=== PATIENT | female | born 1960 | race Caucasian/White ===

== ENCOUNTER 2019-10-15 09:55 | Outpatient (CLI) | payer OTHER, SELFPAY ==
--- NOTE | ~2019-10-15 | MM_ITS ---
EXAMINATION: MM screening [facility] BI w aidan HISTORY: Screening mammogram TECHNIQUE: Craniocaudal and mediolateral oblique 3-D tomosynthesis images were obtained and synthetic 2-D images were generated. CAD analysis was submitted and interpreted. COMPARISON: Comparison to multiple prior studies sequentially, with oldest reviewed study dated 06/30. BREAST PARENCHYMAL COMPOSITION: There are scattered areas of fibroglandular density. FINDINGS: There is a developing cluster of calcifications located laterally in the left breast on CC view. The right breast is stable without evidence for malignancy. IMPRESSION: 1. Developing cluster of left breast calcifications. 2. Magnification views are recommended. BI-RADS Category 0: Incomplete: Needs additional imaging evaluation. Reviewed, dictated and finalized at location A.
== END 2019-10-15 09:56 | disposition home or self-care (01) ==
PROVIDERS: PCP Family Medicine; Visit Provider Obstetrics & Gynecology
DX: Z12.31 Encounter for screening mammogram for malignant neoplasm of breast (principal); R92.8 Other abnormal and inconclusive findings on diagnostic imaging of breast
CPT/HCPCS: 77063; 77067

== ENCOUNTER 2019-10-29 12:18 | Outpatient (CLI) | payer OTHER, SELFPAY ==
--- NOTE | ~2019-10-29 | MM_ITS ---
EXAMINATION: MM diagnostic mammo unilat LT HISTORY: Indeterminate left breast calcifications on screening mammogram TECHNIQUE: Additional images of the left breast were performed and synthetic 2-D images were generate d. CAD analysis was submitted and interpreted. COMPARISON: 10/15/2019, 09/27/2018, 09/21/2017, 07/29/2016 FINDINGS: There are grouped calcifications in the middle third of the outer breast 8.5 cm from the ni pple which appear to be round in morphology. With magnification views, these have a similar and stabl e appearance compared to prior left diagnostic mammogram. No suspicious mass or architectural distort ion are identified. IMPRESSION: 1. Stable benign left breast calcifications. No mammographic evidence of malignancy. 2. Recommend routine screening mammography in one year. BI-RADS Category 2: Benign finding(s). Reviewed, dictated and finalized at location A. IMPRESSION: 1. Stable benign left breast calcifications. No mammographic evidence of malign felix. 2. Recommend routine screening mammography in one year. BI-RADS Category 2: Benign finding(s).
== END 2019-10-29 12:19 | disposition home or self-care (01) ==
PROVIDERS: PCP Family Medicine; Visit Provider Obstetrics & Gynecology
DX: R92.1 Mammographic calcification found on diagnostic imaging of breast (principal)
CPT/HCPCS: 77065

== ENCOUNTER 2020-06-09 11:16 | Outpatient (CLI) | payer OTHER, SELFPAY ==
--- NOTE | ~2020-06-09 | XR_ITS ---
EXAMINATION: XR chest 2V DATE: 06/09/2020 11:42 INDICATION: Shortness of breath. TECHNIQUE: Frontal and lateral views of the chest were obtained. COMPARISON: Chest 2 views 05/08/2018 FINDINGS: The chest demonstrates clear lungs without pneumonia, pleural effusion, or pneumothorax. Th e heart size is normal. There are prominent paracardial fat pads. IMPRESSION: 1. No acute cardiopulmonary disease. Reviewed, dictated and finalized at location B. 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
== END 2020-06-09 11:17 | disposition home or self-care (01) ==
PROVIDERS: PCP Family Medicine; Visit Provider Family Medicine
DX: R06.02 Shortness of breath (principal)
CPT/HCPCS: 71046

== ENCOUNTER 2020-10-17 09:38 | Outpatient (CLI) | payer OTHER, SELFPAY ==
--- NOTE | ~2020-10-17 | MM_ITS ---
EXAMINATION: MM screening [facility] w aidan HISTORY: Screening mammogram TECHNIQUE: Craniocaudal and mediolateral oblique 3-D tomosynthesis images were obtained and synthetic 2-D images were generated. CAD analysis was submitted and interpreted. COMPARISON: 10/29/2019, 10/15/2019, 09/27/2018 BREAST PARENCHYMAL COMPOSITION: The breasts are heterogeneously dense, which may obscure small masses . FINDINGS: Scattered benign-appearing calcifications are present. There is no evidence of suspicious m ass, calcification, or architectural distortion to suggest malignancy in either breast. There has bee n no suspicious interval change. IMPRESSION: 1. No mammographic evidence of malignancy. 2. Recommend routine screening mammography in one year. BI-RADS Category 2: Benign finding(s). Reviewed, dictated and finalized at location A.
== END 2020-10-17 09:39 | disposition home or self-care (01) ==
PROVIDERS: PCP Family Medicine; Visit Provider Obstetrics & Gynecology
DX: Z12.31 Encounter for screening mammogram for malignant neoplasm of breast (principal)
CPT/HCPCS: 77063; 77067

== ENCOUNTER → 2020-11-02 12:03 | Outpatient (CLI) | payer OTHER, SELFPAY ==
--- NOTE | ~2020-11-02 | US_ITS ---
EXAMINATION: US thyroid DATE: 11/02/2020 12:25 INDICATION: Thyrotoxicosis TECHNIQUE: Multiple ultrasound images of the thyroid were obtained. COMPARISON: 05/20/2012 FINDINGS: The right thyroid lobe measures 5.7 x 2.6 x 2.9 cm. The left thyroid lobe measures 5.5 x 3.1 x 2.4 c m. The thyroid isthmus measures 5 mm in maximal thickness. 6 mm wider than tall hypoechoic partially cystic nodule at the superior right thyroid (TI-RADS 3, mildly suspicious , FNA if >=2.5 cm, annual f ollowup is >=1.5 cm). There is also a 7 mm wider than tall solid hypoechoic nodule in the superior ri ght thyroid (TI-RADS 4, moderately suspicious , FNA if >=1.5 cm, annual followup is >=1 cm). 1.4 cm s olid wider than tall isoechoic nodule with ill-defined margins in the left thyroid lobe, also TI RADS 3. There is normal echotexture, echogenicity and vascular flow throughout the thyroid gland. IMPRESSION: 1. A few small bilateral thyroid nodules none meeting consensus criteria for either biopsy or follow- up. Recommend clinical followup with repeat imaging if there are changes on physical exam. Reviewed, dictated and finalized at location B. IMPRESSION: 1. A few small bilateral thyroid nodules none meeting consensus criteria for ei ther biopsy or follow-up. Recommend clinical followup with repeat imaging if th ere are changes on physical exam.
== END ==
PROVIDERS: PCP Family Medicine; Visit Provider Physician Assistant
DX: E05.90 Thyrotoxicosis, unspecified without thyrotoxic crisis or storm (principal)
CPT/HCPCS: 76536

== ENCOUNTER → 2021-06-18 10:25 | Outpatient (CLI) | payer OTHER, SELFPAY ==
--- NOTE | ~2021-06-18 | CT_ITS ---
EXAMINATION:CT lung screening DATE: 06/18/2021 10:37 INDICATION: Personal history of tobacco dependence. TECHNIQUE: Computed tomography (CT) of the chest was performed without intravenous contrast. Automate d exposure control and iterative reconstruction technique were employed. The dose-length product (DLP ) was 262.36 mGy-cm. COMPARISON: Chest CT 05/17/2018 FINDINGS: There is mild atelectasis bilaterally. There is a 2 mm nodule in left upper lobe. No pleura l effusion. The thyroid is enlarged and extends into the superior mediastinum. The heart size is norm al. No pericardial effusion. There are chronic masses in the adrenal glands measuring up to 2.1 cm on the left, consistent with adenomas. There is moderate thoracic spondylosis. IMPRESSION: 1. Lung-RADS category 2: Benign appearance or behavior. Continue annual screening with noncontrast lo w-dose chest CT in 12 months. Reviewed, dictated and finalized at location A. 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 Lung-RADS category 2: Benign appearance or behavior. Continue annual screeni ng with noncontrast low-dose chest CT in 12 months.
== END ==
PROVIDERS: PCP Family Medicine; Visit Provider Physician Assistant
DX: Z12.2 Encounter for screening for malignant neoplasm of respiratory organs (principal); Z87.891 Personal history of nicotine dependence
CPT/HCPCS: 71271

== ENCOUNTER 2021-11-10 16:01 | Outpatient (CLI) | payer OTHER, SELFPAY ==
--- NOTE | ~2021-11-10 | MM_ITS ---
EXAMINATION: MM screening [facility] w aidan HISTORY: Screening TECHNIQUE: Craniocaudal and mediolateral oblique 3-D tomosynthesis images were obtained and synthetic 2-D images were generated. CAD analysis was submitted and interpreted. COMPARISON: Comparison to multiple prior studies sequentially, with oldest reviewed study dated 07/02. BREAST PARENCHYMAL COMPOSITION: The breasts are heterogenously dense, which may obscure small masses FINDINGS: Stable appearance to pleomorphic clustered calcifications, in the upper outer quadrant of t he left breast. There is no evidence of suspicious mass, calcification, or architectural distortion t o suggest malignancy in either breast. There has been no suspicious interval change. IMPRESSION: 1. No mammographic evidence of malignancy. 2. Recommend routine screening mammography in one year. BI-RADS Category 2: Benign finding(s). Reviewed, dictated and finalized at location A.
== END 2021-11-10 16:02 | disposition home or self-care (01) ==
LOC: ANHIMG 16:02
PROVIDERS: PCP Family Medicine; Visit Provider Obstetrics & Gynecology
DX: Z12.31 Encounter for screening mammogram for malignant neoplasm of breast (principal)
CPT/HCPCS: 77063; 77067

== ENCOUNTER → 2021-12-28 12:47 | Outpatient (CLI) | payer MEDICARE, SELFPAY ==
--- NOTE | ~2021-12-28 | US_ITS ---
EXAMINATION: US thyroid DATE: 12/28/2021 13:06 INDICATION: Nontoxic single thyroid nodule. TECHNIQUE: Multiple ultrasound images of the thyroid were obtained. COMPARISON: Ultrasound 11/02/2020 FINDINGS: The right thyroid lobe measures 5.9 x 2.3 x 2.8 cm. The left thyroid lobe measures 5.9 x 2.3 x 2.9 c m. The thyroid demonstrates heterogeneous echogenicity. Vascularity is normal. In the right thyroid lobe, there is a 7 mm solid, hypoechoic, narys-nwch-wlev nodule with smooth margin without echogenic foci (TI-RADS TR4). In the left thyroid lobe, there is a 1.3 cm solid, isoechoic, olaki-iyws-gnwi nod ule with ill-defined margin without echogenic foci (TR3). In the left thyroid lobe, there is a 1.2 cm solid, isoechoic, wider than tall nodule with ill-defined margin without echogenic foci (TR3). IMPRESSION: 1. Small thyroid nodules, likely not clinically significant. No follow-up is needed. 2. Heterogeneous thyroid, likely chronic lymphocytic (Aleyda) thyroiditis. Reviewed, dictated and finalized at location A. IMPRESSION: 1. Small thyroid nodules, likely not clinically significant. No follow-up is ne eded. 2. Heterogeneous thyroid, likely chronic lymphocytic (Aleyda) thyroiditis.
== END ==
PROVIDERS: PCP Family Medicine; Visit Provider Internal Medicine Endocrinology, Diabetes & Metabolism
DX: E04.2 Nontoxic multinodular goiter (principal)
CPT/HCPCS: 76536

== ENCOUNTER 2022-05-19 15:07 | Outpatient (CLI) | payer MEDICARE, SELFPAY ==
--- NOTE | ~2022-05-19 | DEXA_ITS ---
Bone Density Report Name: RACHELLE ISLAS Age: 62 Sex: Female Ethnicity: White Date of : 1960 Indication: postmenopausal; screening for osteoporosis; hysterectomy; Referring Provider: PA AGRAWAL Study: Bone densitometry was performed. Exam Date: May 19, 2022 Accession number: [id number] Bone Density: Region BMD T-score Z-score Classification AP Spine(L1-L4) 0.970 -0.7 0.7 Normal Femoral Neck (Left) 0.734 -1.0 0.3 Normal Total Hip (Left) 0.994 0.4 1.4 Normal Femoral Neck (Right) 0.705 -1.3 0.0 Osteopenia Total Hip (Right) 0.967 0.2 1.2 Normal Total Hip Mean 0.981 0.3 1.3 Normal World Health Organization criteria for BMD impression classify patients as: Normal (T-score at or above -1.0), Osteopenia (T-score between -1.0 and -2.5), or Osteoporosis (T-score at or below -2.5). 10-year Fracture Risk(1): Major Osteoporotic Fracture 6.9% Hip Fracture 0.5% Reported Risk Factors: [place] (), Neck BMD=0.705, BMI=38.2 (1) FRAX(R) Version 3.08. Fracture probability calculated for an untreated patient. Fracture probability may be lower if the patient has received treatment. Clinical Information Provided by Patient: Has used the following medications: Vitamin D Has the following medical conditions: Hysterectomy Patient maximum height was 64 Drinks caffeinated beverages Onset of menses at age 14 Number of children 1 Impression: The patient has low bone mass, based on the Right Femoral Neck T-score. The patient has an estimated ten-year risk of hip fracture of 0.5% and an estimated ten-year risk of major fracture of 6.9%, based on the WHO FRAX algorithm. Discussion: BONE DENSITY IS LOW AT ONE OR MORE SKELETAL SITES. This patient's lowest T-score is low at one or more skeletal sites. It meets the World Health Organization's (WHO) criteria for ?low bone mass? (T-score between -1.0 and -2.5). The patient's 10-year risk of fracture as calculated by FRAX is less than the threshold where pharmacological therapy is recommended by the National Osteoporosis Foundation (NOF). However, all treatment decisions require clinical judgment and consideration of individual patient factors, including patient preferences, comorbidities, previous drug use, risk factors not captured in the FRAX model (e.g., frailty, falls, vitamin D deficiency, increased bone turnover, interval significant decline in bone density) and possible under or overestimation of fracture risk by FRAX. The patient should follow a healthful lifestyle (good nutrition with adequate calcium and vitamin D, and appropriate weight-bearing exercise). Follow-Up: Consider repeating this study in 2 to 3 years to reassess this patient's status, or sooner if there is some new clinical indication. Reported by: TY
== END 2022-05-19 15:08 | disposition home or self-care (01) ==
PROVIDERS: PCP Family Medicine; Visit Provider Internal Medicine Endocrinology, Diabetes & Metabolism
DX: Z78.0 Asymptomatic menopausal state (principal); E05.90 Thyrotoxicosis, unspecified without thyrotoxic crisis or storm; M85.80 Other specified disorders of bone density and structure, unspecified site; M85.851 Other specified disorders of bone density and structure, right thigh
CPT/HCPCS: 77080

== ENCOUNTER 2022-06-30 11:05 | Outpatient (CLI) | payer MEDICARE, SELFPAY ==
--- NOTE | ~2022-06-30 | CT_ITS ---
EXAMINATION: CT lung screening DATE: 06/30/2022 11:31 INDICATION: Former tobacco use TECHNIQUE: Computed tomography (CT) of the chest was performed without intravenous contrast. The dose -length product was 188.43 mGy-cm. Automated exposure control and iterative reconstruction technique were employed. COMPARISON: CT dated 06/18/2021 FINDINGS: No significant pleural or pericardial effusion. Heart size is normal. No thoracic lymphaden opathy. No significant vascular abnormality. There are bilateral adrenal masses, largest in the left adrenal gland measuring 2.7 x 1.3 cm, most likely benign adenomas. There is a 2 mm right upper lobe n odule. There is a 2 mm left upper lobe nodule. These nodules are unchanged. No new pulmonary nodules or masses. Mild thoracic spondylosis. No focal lytic or blastic lesions. IMPRESSION: 1. Lung-RADS category 2: Benign appearance or behavior. Continue annual screening with noncontrast lo w-dose chest CT in 12 months. Reviewed, dictated and finalized at location A. 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 Lung-RADS category 2: Benign appearance or behavior. Continue annual screeni ng with noncontrast low-dose chest CT in 12 months.
== END 2022-06-30 11:06 | disposition home or self-care (01) ==
PROVIDERS: PCP Family Medicine; Visit Provider Family Medicine
DX: Z12.2 Encounter for screening for malignant neoplasm of respiratory organs (principal); Z87.891 Personal history of nicotine dependence
CPT/HCPCS: 71271

== ENCOUNTER 2023-01-24 10:04 | Outpatient (CLI) | payer MEDICARE, SELFPAY ==
--- NOTE | ~2023-01-24 | MM_ITS ---
EXAMINATION: MM screening [facility] BI w aidan HISTORY: Screening mammogram TECHNIQUE: Craniocaudal and mediolateral oblique 3-D tomosynthesis images were obtained and synthetic 2-D images were generated. Bilateral rotated lateral CC views. CAD analysis was submitted and interp reted. COMPARISON: November 10, 2021, October 17, 2020, October 29, 2019 bilateral screening mammogram examinations BREAST PARENCHYMAL COMPOSITION: The breasts are heterogeneously dense, which may obscure small masses . FINDINGS: Biopsy marker of right breast history of prior benign right percutaneous needle biopsy. Sca ttered bilateral benign calcifications are again noted. There is no evidence of suspicious mass, calc ification, or architectural distortion to suggest malignancy in either breast. There has been no susp icious interval change. IMPRESSION: 1. No mammographic evidence of malignancy. 2. Recommend routine screening mammography in one year. BI-RADS Category 2: Benign finding(s). Reviewed, dictated and finalized at location A.
== END 2023-01-24 10:05 | disposition home or self-care (01) ==
LOC: ANHIMG 10:07
PROVIDERS: PCP Family Medicine; Visit Provider Obstetrics & Gynecology
DX: Z12.31 Encounter for screening mammogram for malignant neoplasm of breast (principal)
CPT/HCPCS: 77063; 77067

== ENCOUNTER 2023-07-11 10:59 | Outpatient (CLI) | payer MEDICARE, SELFPAY ==
--- NOTE | ~2023-07-11 | CT_ITS ---
CT Scan of the Chest without Contrast: Clinical Indication: Lung cancer screening, personal history of nicotine dependence Technique: Contiguous sections were acquired throughout the chest without intravenous contrast. Dose reduction technique was used on this scan by utilizing automated exposure control and iterative recon struction technique. The dose-length product (DLP) was 227.00 mGy-cm. COMPARISON: 06/30/2022 Findings: There is no evidence of any significant mediastinal, hilar or axillary lymphadenopathy. The mediastin al soft tissues appear normal. There is no evidence of pleural or pericardial effusion. The lungs are clear. No pulmonary nodules or infiltrates are noted. Images through the upper abdomen reveal stable low-density left adrenal nodules. Impression: Lung RADS 1: Negative. 12 month follow-up screening CT advised. Reviewed, dictated and finalized at [facility]. 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 12 month follow-up screening CT advised.
== END 2023-07-11 11:00 | disposition home or self-care (01) ==
PROVIDERS: PCP Family Medicine; Visit Provider Physician Assistant
DX: Z12.2 Encounter for screening for malignant neoplasm of respiratory organs (principal); Z87.891 Personal history of nicotine dependence
CPT/HCPCS: 71271

== ENCOUNTER 2024-03-06 13:18 | Outpatient (CLI) | payer MEDICARE, SELFPAY ==
--- NOTE | ~2024-03-06 | MM_ITS ---
EXAMINATION: MM screening [facility] BI w aidan HISTORY: Screening TECHNIQUE: Craniocaudal and mediolateral oblique 3-D tomosynthesis images were obtained and synthetic 2-D images were generated. CAD analysis was submitted and interpreted. COMPARISON: Comparison to multiple prior studies sequentially, with oldest reviewed study dated 09/27. BREAST PARENCHYMAL COMPOSITION: Not dense: There are scattered areas of fibroglandular density. FINDINGS: There is no evidence of suspicious mass, calcification, or architectural distortion to sugg est malignancy in either breast. There has been no suspicious interval change. IMPRESSION: 1. No mammographic evidence of malignancy. 2. Recommend routine screening mammography in one year. BI-RADS Category 2: Benign finding(s). Reviewed, dictated and finalized at location B.
== END 2024-03-06 13:19 | disposition home or self-care (01) ==
PROVIDERS: PCP Family Medicine; Visit Provider Obstetrics & Gynecology
DX: Z12.31 Encounter for screening mammogram for malignant neoplasm of breast (principal)
CPT/HCPCS: 77063; 77067

== ENCOUNTER 2024-05-22 04:13 | Day surgery (SDC) | payer MEDICARE, SELFPAY ==
--- NOTE | 2024-05-01 09:59 | PC.NURSE ---
Suprep Bowel Prep sent to pt pharmacy per pt's request. Instructions e-mailed to pt.
[2024-05-08 13:40] VITALS: BMI 37.8
[2024-05-22 06:50] VITALS: BP 147/90; PULSE 104; RESP 20; TEMP 36; O2SAT 100; BMI 39.2
[2024-05-22] MEDS: LACTATED RINGERS 1,000 ML 150 ML IV CONT (07:03)
--- NOTE | 2024-05-22 07:31 | WPDANESEPPF ---
Anes - Initial Pre Proc Eval Procedure: Operation Date: 05/22/24 08:00 Proposed Procedures p Colonoscopy - Tello Marshall MD Date/Time: 05/22/24 07:31 Surgeon: Tello Marshall MD Pre Op Diagnosis: personal hx colon polyps, family hx of cancer Patient Data Age: 64 Gender: F Height: 1.63 m Weight: 103.8 kg Last Vital Signs Temp 96.8 F L 05/22/24 06:50 Pulse 104 H 05/22/24 06:50 Resp 20 05/22/24 06:50 BP 147/90 H 05/22/24 06:50 Pulse Ox 100 05/22/24 06:50 O2 Del Method Room Air 05/22/24 06:50 Allergies Allergy/AdvReac Type Severity Reaction Status Date / Time hydrocodone Allergy Intermediate RASH Verified 05/22/24 06:49 bupropion [From Wellbutrin] Allergy Mild Rash Verified 05/22/24 06:49 Home Medications Medication Instructions Recorded Confirmed Type multivitamin with minerals 1 cap PO DAILY 07/23/19 05/22/24 History (My-Vitalife capsule) apremilast 30 mg tablet (Otezla) 30 mg PO BID 02/03/21 05/22/24 History cholecalciferol (vitamin D3) 50 2,000 unit PO DAILY #90 caps 06/14/21 05/22/24 Rx mcg (2,000 unit) capsule gabapentin 300 mg capsule 300 mg PO QID 06/14/21 05/22/24 History simvastatin 80 mg tablet 80 mg PO DAILY #90 tabs 11/21/23 05/22/24 Rx hydrochlorothiazide 12.5 mg tablet See Rx Instructions .Route 12/20/23 05/22/24 Rx .COMPLEX #90 tabs lisinopril 30 mg tablet See Rx Instructions .Route 12/20/23 05/22/24 Rx .COMPLEX #90 tabs metoprolol succinate 25 mg See Rx Instructions .Route 12/20/23 05/22/24 Rx tablet,extended release 24 hr .COMPLEX #90 tabs omeprazole 20 mg capsule,delayed See Rx Instructions .Route 12/20/23 05/22/24 Rx release .COMPLEX #90 caps cranberry fruit concentrate 250 mg 250 mg PO TID 05/08/24 05/22/24 History chewable tablet (Azo Cranberry) Patient hx anesthesia problems: none Family hx anesthesia problems: none Results Review: All pre-operative results and documents have been reviewed as part of the pre-operative evaluation. [facility] Past Medical History Medical History Accelerated hypertension Acute arthritis Anxiety Back pain Benign essential HTN Chronic pain Chronic UTI Class 2 obesity with body mass index (BMI) of 38.0 to 38.9 in adult Cyst Degeneration of spine GERD (gastroesophageal reflux disease) History of tobacco use Hyperthyroidism Lumbar radiculopathy, chronic Mixed hyperlipidemia Neuropathy Osteopenia Psoriasis Screening mammogram, encounter for Surgical History Surgical History Delivery by section (07/01/87) H/O colposcopy with cervical biopsy (09/15/05) colposcopy ; Atypia H/O excision of lamina of lumbar vertebra for decompression of spinal cord H/O LEEP (07/15/21) History of gynecological procedure (12/27/06) supracx hyst with RSO ; pain right ovarian mass / adenomyosis, leiomyomata History of gynecological procedure (09/08/04) T/L ; D&C ; Novasure Ablation ; dysmenorrhea History of kidney surgery (07/02/09) kidney stones removed History of orthopedic surgery (12/05/17) right hand trigger thumb surgery S/P breast biopsy, right (08/10/10) right breast calcification Family History Family History Father Carcinoma of colon Family history of lung cancer Patient's father is Mother Family history of rheumatoid arthritis Other Alcoholism Family history of arthritis Heart disease Hypertension Social History Social History Social History: Smoking packs per day: 1 Smoking cigarettes per day: 20.0 Years smoked: 34 Smoking pack-years: 34.00 Smoking status: Former smoker Tobacco type: cigarettes Second hand tobacco smoke exposure: Yes Smoking end date: 09/02/19 Alcohol intake: never Sub
--- NOTE | 2024-05-22 07:57 | PM.IMHP ---
H&P: HPI History of Present Illness Date/Time: 05/22/24 07:57 Chief Complaint: This patient has family history of colorectal cancer. His father had CRC at 54 years old. the patient had polyps 10 years ago. Narrative: as above Review of Systems Review of Systems: All systems reviewed & are unremarkable except as noted in HPI and below PMFSH Past Medical History Medical History Accelerated hypertension Acute arthritis Anxiety Back pain Benign essential HTN Chronic pain Chronic UTI Class 2 obesity with body mass index (BMI) of 38.0 to 38.9 in adult Cyst Degeneration of spine GERD (gastroesophageal reflux disease) History of tobacco use Hyperthyroidism Lumbar radiculopathy, chronic Mixed hyperlipidemia Neuropathy Osteopenia Psoriasis Screening mammogram, encounter for Surgical History Surgical History Delivery by section (07/01/87) H/O colposcopy with cervical biopsy (09/15/05) colposcopy ; Atypia H/O excision of lamina of lumbar vertebra for decompression of spinal cord H/O LEEP (07/15/21) History of gynecological procedure (12/27/06) supracx hyst with RSO ; pain right ovarian mass / adenomyosis, leiomyomata History of gynecological procedure (09/08/04) T/L ; D&C ; Novasure Ablation ; dysmenorrhea History of kidney surgery (07/02/09) kidney stones removed History of orthopedic surgery (12/05/17) right hand trigger thumb surgery S/P breast biopsy, right (08/10/10) right breast calcification Family History Family History Father Carcinoma of colon Family history of lung cancer Patient's father is Mother Family history of rheumatoid arthritis Other Alcoholism Family history of arthritis Heart disease Hypertension Social History Social History Social History: Smoking packs per day: 1 Smoking cigarettes per day: 20.0 Years smoked: 34 Smoking pack-years: 34.00 Smoking status: Former smoker Tobacco type: cigarettes Second hand tobacco smoke exposure: Yes Smoking end date: 09/02/19 Alcohol intake: never Substance use: never Substance use type: does not use Do You Feel Safe in your Home?: Yes Lack of Transportation: No Lack of Food: Never True Current Housing: I Have Housing Concerned About Future Housing: No Difficulty Paying Gas/Electric Bills: No Difficulty Paying for Meds: No Currently Unemployed: No Difficulty w/ Childcare or Family Care: No Living arrangements: with family Additional living arrangements comments: Occupation/Education: retired Gender identity (if verbalized by the patient): Female Sexual Orientation (if Verbalized by the Patient): Straight or Heterosexual Spiritual care concerns: No Meds Home Medications and Allergies Home Medications Medication Instructions Recorded Confirmed Type multivitamin with minerals 1 cap PO DAILY 07/23/19 05/22/24 History (My-Vitalife capsule) apremilast 30 mg tablet (Otezla) 30 mg PO BID 02/03/21 05/22/24 History cholecalciferol (vitamin D3) 50 2,000 unit PO DAILY #90 caps 06/14/21 05/22/24 Rx mcg (2,000 unit) capsule gabapentin 300 mg capsule 300 mg PO QID 06/14/21 05/22/24 History simvastatin 80 mg tablet 80 mg PO DAILY #90 tabs 11/21/23 05/22/24 Rx hydrochlorothiazide 12.5 mg tablet See Rx Instructions .Route 12/20/23 05/22/24 Rx .COMPLEX #90 tabs lisinopril 30 mg tablet See Rx Instructions .Route 12/20/23 05/22/24 Rx .COMPLEX #90 tabs metoprolol succinate 25 mg See Rx Instructions .Route 12/20/23 05/22/24 Rx tablet,extended release 24 hr .COMPLEX #90 tabs omeprazole 20 mg capsule,delayed See Rx Instructions .Route 12/20/23 05/22/24 Rx release .COMPLEX #90 caps cran[place] [facility]
[2024-05-22 08:32] VITALS: BP 124/61; PULSE 90; RESP 26; O2SAT 100
[2024-05-22 08:42] VITALS: BP 108/62; PULSE 85; RESP 21; O2SAT 96
[2024-05-22 08:52] VITALS: BP 127/74; PULSE 79; RESP 17; O2SAT 98
== END 2024-05-22 09:05 | disposition home or self-care (01) ==
PROVIDERS: PCP Family Medicine; Referring Provider Internal Medicine Gastroenterology; Visit Provider Internal Medicine Gastroenterology
PROC: 0DJD8ZZ Inspection of Lower Intestinal Tract, Via Natural or Artificial Opening Endoscopic (ICD-10-PCS; CPT 45378; principal; 2024-05-22 08:00)
DX: Z12.11 Encounter for screening for malignant neoplasm of colon (principal); D12.3 Benign neoplasm of transverse colon; D12.4 Benign neoplasm of descending colon; I10 Essential (primary) hypertension; F41.9 Anxiety disorder, unspecified; K21.9 Gastro-esophageal reflux disease without esophagitis; E78.2 Mixed hyperlipidemia; G89.29 Other chronic pain; M54.16 Radiculopathy, lumbar region; N39.0 Urinary tract infection, site not specified; E05.90 Thyrotoxicosis, unspecified without thyrotoxic crisis or storm; M85.88 Other specified disorders of bone density and structure, other site; G31.89 Other specified degenerative diseases of nervous system; E66.9 Obesity, unspecified; Z68.39 Body mass index [BMI] 39.0-39.9, adult; Z98.890 Other specified postprocedural states; Z87.891 Personal history of nicotine dependence; Z87.442 Personal history of urinary calculi; Z80.0 Family history of malignant neoplasm of digestive organs; Z80.1 Family history of malignant neoplasm of trachea, bronchus and lung; Z82.49 Family history of ischemic heart disease and other diseases of the circulatory system
CPT/HCPCS: 45385; 88305; J2003; J2704; J7120

== ENCOUNTER 2024-06-04 08:32 | Outpatient (CLI) | payer MEDICARE, SELFPAY ==
--- NOTE | ~2024-06-04 | XR_ITS ---
Clinical Indication: Acute pharyngitis PA and lateral views of the chest: Comparison: 06/09/2020 Findings: The lungs are clear, without evidence of focal consolidation or pleural effusion. Cardiome diastinal silhouette is within normal limits. Bones and soft tissues are unremarkable. Impression: Normal chest. Reviewed, dictated and finalized at [facility]. 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
[2024-06-04 09:48] LABS: Basophils Percent Auto 0.4 % (0.2-1.2); Eosinophils Absolute Auto 0.1 K/mm3 (0-0.3); Eosinophils Percent Auto 1.2 % (0-4.4); Hematocrit 41.3 % (37.0-47.0); Hemoglobin 13.3 g/dL (12.0-15.0); Immature Granulocyte Absolute 0.02 K/mm3 (0.00-0.031); Immature Granulocyte Percent A 0.2 % (0-0.5); Lymphocytes Absolute Auto 1.78 K/mm3 (0.9-3.2); Lymphocytes Percent Auto 17.9 % (18.3-44.2); Mean Corpuscular HGB Conc 32.2 g/dl (32-36); Mean Corpuscular Hemoglobin 29.9 pg (26-34); Mean Corpuscular Volume 92.8 fl (80-100); Mean Platelet Volume 9.4 fl (7.4-10.4); Monocytes Absolute Auto 0.7 K/mm3 (0.1-0.6); Monocytes Percent Auto 6.6 % (2.6-8.5); Neutrophils Absolute Auto 7.3 K/mm3 (1.3-6.7); Neutrophils Percent Auto 73.7 % (45.5-73.1); Platelet Count Result 301 k/mm3 (150-375); Red Blood Count 4.45 M/mm3 (4.2-5.4); Red Cell Distribution Width 13.5 % (11.5-14.5)
[2024-06-04 09:56] LABS: Hemoglobin A1C 5.8 % (<5.7)
[2024-06-04 10:20] LABS: LDL Cholesterol Direct 72 mg/dL
[2024-06-04 10:24] LABS: Influenza A QL RT-PCR Negative (Negative); Influenza B QL RT-PCR Negative (Negative); RSV RNA, RT-PCR Negative (Negative); SARS-CoV-2 RNA PCR Negative (Negative)
[2024-06-04 10:27] LABS: Alanine Aminotransferase 21 U/L (6-35); Albumin Level 4.6 g/dL (3.5-5.1); Alkaline Phosphatase 110 U/L (38-126); Anion Gap 10 mmol/L (4-12); Aspartate Amino Transferase 26 U/L (14-36); Bilirubin,Total 0.5 mg/dL (0.2-1.3); Blood Urea Nitrogen 15 mg/dL (7-17); Carbon Dioxide 27 mmol/L (22-30); Chloride 102 mmol/L (98-107); Cholesterol 163 mg/dL (0-200); Estimated Glomerular Filt Rate > 60; Glucose 109 mg/dL (65-110); HDL Direct 57 mg/dL; Potassium 3.7 mmol/L (3.4-5.0); Sodium 139 mmol/L (137-145); Triglycerides 158 mg/dL (<150)
== END 2024-06-04 08:33 | disposition home or self-care (01) ==
LOC: ANHIMG 08:38
PROVIDERS: PCP Family Medicine; Visit Provider Physician Assistant
DX: J02.9 Acute pharyngitis, unspecified (principal); R06.00 Dyspnea, unspecified; R00.0 Tachycardia, unspecified; I10 Essential (primary) hypertension; Z13.1 Encounter for screening for diabetes mellitus
CPT/HCPCS: 36415; 71046; 80053; 80061; 83036; 85025; 87637

== ENCOUNTER 2024-07-12 09:40 | Outpatient (CLI) | payer MEDICARE, SELFPAY ==
--- NOTE | ~2024-07-12 | CT_ITS ---
CT Scan of the Chest without Contrast: Clinical Indication: Lung cancer screening, nicotine dependence Technique: Contiguous sections were acquired throughout the chest without intravenous contrast. Dose reduction technique was used on this scan by utilizing automated exposure control and iterative recon struction technique. The dose-length product (DLP) was 268.35 mGy-cm. COMPARISON: 07/11/2023 Findings: There is no evidence of any significant mediastinal, hilar or axillary lymphadenopathy. The mediastin al soft tissues appear normal. There is minimal pericardial fluid. There is no pleural effusion. The lungs are clear. No pulmonary nodules or infiltrates are noted. Images through the upper abdomen reveal cholelithiasis, and stable bilateral adrenal nodules, likely adenomas.. Impression: Lung RADS 1: Negative. 12 month follow-up screening CT advised. Reviewed, dictated and finalized at [facility]. 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 12 month follow-up screening CT advised.
== END 2024-07-12 09:41 | disposition home or self-care (01) ==
PROVIDERS: PCP Family Medicine; Visit Provider Physician Assistant
DX: Z12.2 Encounter for screening for malignant neoplasm of respiratory organs (principal); Z87.891 Personal history of nicotine dependence
CPT/HCPCS: 71271

== ENCOUNTER 2024-09-06 09:25 | Outpatient (CLI) | payer MEDICARE, SELFPAY ==
--- NOTE | ~2024-09-06 | US_ITS ---
EXAM: ABDOMEN ULTRASOUND HISTORY: K80.20 - Calculus of gallbladder without cholecystitis wi... COMPARISON: Reference is made to a CT examination of the lungs (including the upper abdomen) dictated 07/12/2024 FINDINGS: LIVER: The liver is unremarkable in echogenicity and size measuring 20cm in longitudinal dimension. GALLBLADDER: Multiple stones are identified within the gallbladder. No gallbladder wall thickening or pericholecystic fluid. The portal vein is patent demonstrating hepatopedal flow. BILE DUCTS: Common bile duct measures 4mm. PANCREAS: Limited evaluation of the pancreas secondary to overlying bowel gas SPLEEN: The spleen is unremarkable in echogenicity and size measuring 9.9cm in longitudinal dimension . RIGHT KIDNEY: 12.6 cm. In length. No hydronephrosis or bulky renal calculi. Anechoic avascular structure within the interpolar region of the right kidney measuring 12 x 9 x 11 m m, likely a simple cyst for which no further follow-up is needed. LEFT KIDNEY: 12.2cm in length. No hydronephrosis or renal calculi. VASCULATURE : The abdominal aorta is nonaneurysmal. The IVC is patent. IMPRESSION: Cholelithiasis without gallbladder wall thickening or pericholecystic fluid. Hepatomegaly. Right renal simple cyst for which no further follow-up is needed. Evaluation of the pancreas is limited by overlying bowel gas. Reviewed, dictated and finalized at location A. ARCH CONTRACTS SUPERVISOR
--- OUTSIDE RECORDS SUMMARY | 2024-09-06 10:02 | XMS_ITS | Patient Health Summary ---
Author Organization [facility] Address [address] [place] [address] Care Team Providers Care Seaman Name Role Phone Petra Doll MD Primary Care Provider + Note from [facility],non-owned Affiliates and Associated Physician Practices is amultiple site organization consisting of ambulatory clinics and hospital sitesin [place], [place], [place] and [place]. This disclosure is being madepursuant to the Care Everywhere program and may not contain all information available regarding this patient. Last updated 18.[facility] Allergies * Hydrocodone-Acetaminophen(Rash) -Low Criticality Medications * Be aware that medications may not be up to date on this document. Alwaysverify current medications with the patient. * vitamin D, cholecalciferol, 2000 UNITS tablet Take 2,000 Units by mouth * hydrochlorothiazide (HYDRODIURIL) 25 MG tablet Take 12.5 mg by mouth * lisinopril (PRINIVIL; ZESTRIL) 10 MG tablet Take 10 mg by mouth * Pediatric Multiple Vit-Vit C (POLY--MY) solution Take 1 Tab by mouth * omeprazole EC (PRILOSEC OTC) 20 MG tablet Take 20 mg by mouth * simvastatin (ZOCOR) 20 MG tablet Take 20 mg by mouth * vitamin E (TOCOPHERYL) 1000 UNIT capsule Take 1,000 Units by mouth * diclofenac sodium EC (VOLTAREN) 75 MG tablet(Started 11/18/2015) Take 1 Tab by mouth 2 times daily 5 refills left Social History Tobacco Use Types Packs/Day Years Used Date Smoking Tobacco: Every Day Cigarettes Smokeless Tobacco: Never Tobacco Cessation:Ready to Q uit: No; Counseling Given: Yes Alcohol Use Standard Drinks/Week Comments No 0 (1 standard drink = 0.6 oz pur e alcohol) Sex and Gender Information Value Date Recorded Sex Assigned at Not on file Gender Identity Not on file Sexual Orientation Not on file Last Filed Vital Signs Vital Sign Reading Time Taken Comments Blood Pressure 125/91 11/18/2015 1:44 PM CDT Pulse 100 11/18/2015 1:44 PM CDT Temperature 36.9 C (98.4 F) 01/30/2013 8:07 AM CDT Respiratory Rate 16 01/30/2013 8:07 AM CDT Oxygen Saturation - - Inhaled Oxygen Concentration - - Weight 90.7 kg (200 lb) 11/18/2015 1:44 PM CDT Height 162.6 cm (5' 4 ) 11/18/2015 1:44 PM CDT Body Mass Index 34.33 11/18/2015 1:44 PM CDT Procedures * LAB HISTORICAL RESULTS-ONBASE(Performed 06/23/2012) Results * LAB HISTORICAL RESULTS-ONBASE (06/23/2012) 06/23/2012 Narrative [facility] - 01/25/2013 10:19 AM CDT Historical Provider LAB - CHEMISTRY O RDERABLES [facility] [address] [place] [address], [facility] Care Teams Seaman Relationship Specialty Start Date End Date Petra Doll MD [address] [place] [id number] PCP - General Family Medicine 11/18/15
--- OUTSIDE RECORDS SUMMARY | 2024-09-06 10:02 | XMS_ITS | Clinical Summary ---
Author Organization [facility] Address [address] [place] [address] Care Team Providers Care Confidential Secretary Name Role Phone Petra Doll MD Primary Care Provider + Source Comments [facility],non-owned Affiliates and Associated Physician Practices is amultiple site organization consisting of ambulatory clinics and hospital sitesin [place], [place], [place] and [place]. This disclosure is being madepursuant to the Care Everywhere program and may not contain all information available regarding this patient. Last updated 18.[facility] Allergies Active Allergy Reactions Criticality Noted Date Comments Hydrocodone-Acetaminophen Rash Low 11/18/2015 Medications * Be aware that medications may not be up to date on this document. Alwaysverify current medications with the patient. Medication Sig Dispensed Refills Start Date End Date Status vitamin D, cholecalciferol, 2000 UNITS tablet Take 2,000 Units by mouth Active hydrochlorothiazide (HYDRODIURIL) 25 MG tablet Take 12.5 mg by mouth Active lisinopril (PRINIVIL; ZESTRIL) 10 MG tablet Take 10 mg by mouth Active Pediatric Multiple Vit-Vit C (POLY--MY) solution Take 1 Tab by mouth Active omeprazole EC (PRILOSEC OTC) 20 MG tablet Take 20 mg by mouth Active simvastatin (ZOCOR) 20 MG tablet Take 20 mg by mouth Active vitamin E (TOCOPHERYL) 1000 UNIT capsule Take 1,000 Units by mouth Active diclofenac sodium EC (VOLTAREN) 75 MG tablet Take 1 Tab by mouth 2 times daily 60 Tab 5 11/18/2015 Active Family History Medical History Relation Name Comments Cancer Father Hypercholesterolemia Father Hypertension Father Arthritis - Rheumatoid Mother Hypercholesterolemia Mother Hypertension Mother Relation Name Status Comments Father Mother Social History Tobacco Use Types Packs/Day Years [...] Mass Index 34.33 11/18/2015 1:44 PM CDT Plan of Treatment Health Maintenance Due Date Last Done Comments COLOGUARD (AGES 45-75) - COL ON CA SCREENING 1962 COLON MONITORING 1962 COLONOSCOPY - COLON CA SCREENING 1962 CT COLONOGRAPHY - COLON CA SCREENING 1962 Colorectal Cancer Screening 1962 FIT - COLON CA SCREENING 1962 FLEX SIG - COLON CA SCREENING 1962 MAMMOGRAM 1962 PAP SMEAR 1962 HIV SCREENING 1977 HEPATITIS C SCREENING 02/10/1980 DTAP/TDAP/TD VACCINES (1 - Tdap) 1981 PNEUMOCOCCAL VACCINE 50+ (1 of 2 - PCV) 1981 PNEUMOCOCCAL VACCINE (1 of 2 - PCV) 1981 ZOSTER VACCINE (1 of 2) 02/15/2012 COVID-19 VACCINE ( - 2023-2 5 season) 2024 INFLUENZA VACCINE (#1) 2024 DEPRESSION SCREENING 07/31/2024 MEDICARE AWV CALENDAR YEAR 2024 Respiratory Syncytial Virus (RSV) Vaccine Pt: or over 60 yrs (1 - 1-dose 75+ series) 2037 HEPATITIS B VACCINE Aged Out No longe r eligible based on patient's age to complete this topic HIB VACCINE Aged Out No longer eligi ble based on patient's age to complete this topic HPV VACCINE Aged Out No longer eligi ble based on patient's age to complete this topic MENINGOCOCCAL (Group B) VACCINE Aged Out No longer eligible based on patient's age to complete this topic MENINGOCOCCAL VACCINE Aged Out No josy addie eligible based on patient's age to complete this topic Care Teams Confidential Secretary Relationship Specialty Start Date End Date Petra Doll MD [address] [place] [address] PCP - General Family Medicine 11/18/15
--- OUTSIDE RECORDS SUMMARY | 2024-09-06 10:02 | XMS_ITS | Referral Summary ---
Author Organization [facility] Address [address] [place] [address] Care Team Providers Care Land Acquisition Manager Name Role Phone Petra Doll MD Primary Care Provider + Source Comments [facility],non-owned Affiliates and Associated Physician Practices is amultiple site organization consisting of ambulatory clinics and hospital sitesin [place], [place], [place] and [place]. This disclosure is being madepursuant to the Care Everywhere program and may not contain all information available regarding this patient. Last updated 18.[facility] Allergies Active Allergy Reactions Criticality Noted Date [...] times daily 60 Tab 5 11/18/2015 Active Social History Tobacco Use Types Packs/Day Years [...] 11/18/2015 1:44 PM CDT Plan of Treatment Not on file Care Teams Land Acquisition Manager Relationship Specialty Start Date End Date Petra Doll MD [address] [place], [place] [phone] PCP - General Family Medicine 11/18/15
--- OUTSIDE RECORDS SUMMARY | 2024-09-06 10:02 | XMS_ITS | Clinical Summary ---
Author Organization [facility] Address [address] [place] [address] Care Team Providers Care Processing Mgr Name Role Phone Petra Doll MD Primary Care Provider Allergies Active Allergy Reactions Criticality Noted Date Comments Hydrocodone-Acetaminophen Rash Medium 11/18/2015 Medications omeprazole (PriLOSEC) 20 mg capsule 9 Active hydroCHLOROthia zide (HYDRODIURIL) 12.5 mg tablet 9 Active clobetasol (TEMOVATE) 0.05 % ointment APPLY TO THE AFFECTED AREA(S) OF HANDS/FEET TWICE A DAY FOR UP TO 2 WEEKS, THEN EVERY OTHER DAY 1 9 Active cholecalciferol (VITAMIN D-3) 2,000 unit tablet Take 2,000 Units by mouth Active OTEZLA 30 mg tablet 9 Active multivitamin with minerals capsule Take by mouth Active metoprolol XL (TOPROL-XL) 25 mg extended release tablet Take 1 tablet (25 mg total) by mouth daily 3 Active lisinopriL (PRINIVIL,ZESTR [place]) 30 mg tablet Take 1 tablet (30 mg total) by mouth daily Active simvastatin (ZOCOR) 80 mg tablet Take 1 tablet (80 mg total) by mouth daily 4 Active gabapentin (NEURONTIN) 300 mg capsule TAKE 1 CAPSULE BY MOUTH FOUR TIMES A DAY 360 capsule 5 Active gabapentin (NEURONTIN) 300 mg capsule TAKE 1 CAPSULE BY MOUTH FOUR TIMES A DAY 360 capsule 4 08/26/19 25 Discontinu ed(Reorder ) Active Problems No known active problems Surgical History Surgery Date Site/Laterality Comments FL UPPER GI AIR CONTRAST W KUB 03/25/2019 Bilateral Social History Tobacco Use Types Packs/Day Years Used Date Smoking Tobacco: Never Smokeless Tobacco: Never Comments Unknown Sex and Gender Information Value Date Recorded Sex Assigned at Not on file Legal Sex Female 12:03 PM CDT Gender Identity Not on file Sexual Orientation Not on file Obstetrics History Last Filed Vital Signs Vital Sign Reading Time Taken Comments Blood Pressure 139/92 03/25/2019 11:50 AM CDT Pulse 104 03/25/2019 11:50 AM CDT Temperature - - Respiratory Rate - - Oxygen Saturation 97% 03/25/2019 11:50 AM CDT Inhaled Oxygen Concentration - - Weight 97.5 kg (215 lb) 05/18/2023 6:59 AM CDT Height 162.6 cm (5' 4 ) 05/18/2023 6:59 AM CDT Body Mass Index 36.9 05/18/2023 6:59 AM CDT Plan of Treatment Health Maintenance Due Date Last Done Comments Breast Cancer Screening-Mammogram 1962 Cervical Cancer Screening 1962 Colon Cancer Screening-Colonoscopy 1962 Depression Screening 1962 Hepatitis C Screening 1962 DTaP/Tdap/Td Vaccine (1 - Tdap) 1973 Hepatitis B Screening 02/15/1980 Regular Well Visit/Exam 18-64 02/15/1980 Zoster Vaccine (1 of 2) 02/15/2012 Influenza Vaccine (#1) 2024 05/15/2019 Pneumococcal vaccine <65 Aged Out No longer eligible based on patient's age to complete this topic Insurance [employer] [facility] [place] [address] [facility] Care Teams Processing Mgr Relationship Specialty Start Date End Date Petra Doll MD [address] [facility] [address] [place] [address] PCP - General Family Medicine 02/07/19
--- OUTSIDE RECORDS SUMMARY | 2024-09-06 10:02 | XMS_ITS | Referral Summary ---
Author Organization [facility] Address [address] [place] [address] Care Team Providers Care C2 Tactical Analysis Technician Name Role Phone Petra Doll MD Primary [...] MOUTH FOUR TIMES A DAY 360 capsule 08/26/19 25 Discontinu ed(Reorder ) Active Problems No known active problems Social History Tobacco Use Types Packs/Day Years [...] 05/18/2023 6:59 AM CDT Plan of Treatment [place] [address] [facility] [place] [address] [facility] [employer] Care Teams C2 Tactical Analysis Technician Relationship Specialty Start Date End Date Petra Doll MD [address] [facility] [address] [place] [address] PCP - General Family Medicine 02/07/19
== END 2024-09-06 09:26 | disposition home or self-care (01) ==
PROVIDERS: PCP Family Medicine; Visit Provider Internal Medicine Gastroenterology
DX: K80.20 Calculus of gallbladder without cholecystitis without obstruction (principal); R16.0 Hepatomegaly, not elsewhere classified; N28.1 Cyst of kidney, acquired
CPT/HCPCS: 76700

== ENCOUNTER 2024-09-25 01:07 | Day surgery (SDC) | payer MEDICARE, SELFPAY ==
[2024-09-13 10:23] VITALS: BMI 38.7
--- OUTSIDE RECORDS SUMMARY | 2024-09-25 01:10 | XMS_ITS | Referral Summary ---
Author Organization [facility] Address [address] [place] [address] Care Team Providers Care Plant Mechanic Name Role Phone Petra Doll MD Primary Care Provider Allergies Active Allergy Reactions Criticality Noted Date Comments Hydrocodone-Acetaminophen Rash Medium 11/18/2015 Medications omeprazole (PriLOSEC) 20 mg capsule 01/19/2019 Active hydroCHLOROthia zide (HYDRODIURIL) 12.5 mg tablet 01/19/2019 Acti ve clobetasol (TEMOVATE) 0.05 % ointment APPLY TO THE AFFECTED AREA(S) OF HANDS/FEET TWICE A DAY FOR UP TO 2 WEEKS, THEN EVERY OTHER DAY 1 01/07/2019 Active cholecalciferol (VITAMIN D-3) 2,000 unit tablet Take 2,000 Units by mouth Active OTEZLA 30 mg tablet 01/28/2019 Active multivitamin with minerals capsule Take by mouth Active metoprolol XL (TOPROL-XL) 25 mg extended release tablet Take 1 tablet (25 mg total) by mouth daily 04/10/2023 Active lisinopriL (PRINIVIL,ZESTR [place]) 30 mg tablet Take 1 tablet (30 mg total) by mouth daily Active simvastatin (ZOCOR) 80 mg tablet Take 1 tablet (80 mg total) by mouth daily 03/01/2024 Active gabapentin (NEURONTIN) 300 mg capsule TAKE 1 CAPSULE BY MOUTH FOUR TIMES A DAY 360 capsule 08/26/2024 Active Active Problems No known active problems Social [...] Plan of Treatment Not on file [place] [address] [facility] [employer] [address] [facility] [employer] Care Teams Plant Mechanic Relationship Specialty Start Date End Date Petra Doll MD [address] [facility] [address] [place] [address] PCP - General Family Medicine 02/07/19
--- OUTSIDE RECORDS SUMMARY | 2024-09-25 01:10 | XMS_ITS | Clinical Summary ---
Author Organization [facility] Address [address] [place] [address] Care Team Providers Care Gambling Counsellor Name Role Phone Petra Doll MD Primary [...] Active Active Problems No known active problems Surgical [...] patient's age to complete this topic Insurance [facility] Care Teams Gambling Counsellor Relationship Specialty Start Date End Date Petra Doll MD [address] [facility] [address] [place] [address] PCP - General Family Medicine 02/07/19
--- OUTSIDE RECORDS SUMMARY | 2024-09-25 01:10 | XMS_ITS | Patient Health Summary ---
Author Organization [facility] Address [address] [place] [address] Care Team Providers Care Breaker Machine Operator Name Role Phone Petra Doll MD Primary Care Provider + Note from [facility],non-owned Affiliates and Associated Physician Practices is amultiple site organization consisting of ambulatory clinics and hospital sitesin [place], [place], [place] and [place]. This disclosure is being madepursuant to the Care Everywhere program and may not contain all information available regarding this patient. Last updated 18.[facility] Allergies * Hydrocodone-Acetaminophen(Rash) -Low Criticality Medications * [...] * LAB HISTORICAL RESULTS-ONBASE (06/23/2012) 06/23/2012 Narrative [facility] - 01/25/2013 10:19 AM CDT Historical Provider LAB - CHEMISTRY O RDERABLES [facility] [address] [place] [address], [facility] Care Teams Breaker Machine Operator Relationship Specialty Start Date End Date Petra Doll MD [address] [place] [id number] PCP - General Family Medicine 11/18/15
--- OUTSIDE RECORDS SUMMARY | 2024-09-25 01:10 | XMS_ITS | Referral Summary ---
Author Organization [facility] Address [address] [place] [address] Care Team Providers Care Highway Commissioner Name Role Phone Petra Doll MD Primary Care Provider + Source Comments [facility],non-owned Affiliates and Associated Physician Practices is amultiple site organization consisting of ambulatory clinics and hospital sitesin [place], [place], [place] and [place]. This disclosure is being madepursuant to the Care Everywhere program and may not contain all information available regarding this patient. Last updated 18.[facility] Allergies Active Allergy Reactions Criticality Noted Date [...] of Treatment Not on file Care Teams Highway Commissioner Relationship Specialty Start Date End Date Petra Doll MD [address] [place], [place] [id number] PCP - General Family Medicine 11/18/15
--- OUTSIDE RECORDS SUMMARY | 2024-09-25 01:10 | XMS_ITS | Clinical Summary ---
Author Organization [facility] Address [address] [place] [address] Care Team Providers Care Pipe Layer Name Role Phone Petra Doll MD Primary Care Provider + Source Comments [facility],non-owned Affiliates and Associated Physician Practices is amultiple site organization consisting of ambulatory clinics and hospital sitesin [place], [place], [place] and [place]. This disclosure is being madepursuant to the Care Everywhere program and may not contain all information available regarding this patient. Last updated 18.[facility] Allergies Active Allergy Reactions Criticality Noted Date [...] age to complete this topic Care Teams Pipe Layer Relationship Specialty Start Date End Date Petra Doll MD [address] [place] [address] PCP - General Family Medicine 11/18/15
[2024-09-25 08:54] VITALS: BP 140/98; PULSE 90; RESP 16; TEMP 36.4; O2SAT 97; BMI 38.2
[2024-09-25] MEDS: LACTATED RINGERS 1,000 ML 150 ML IV CONT (09:07)
--- NOTE | 2024-09-25 09:57 | P.PNAN_ITS ---
Anes - Initial Pre Proc Eval Procedure: Operation Date: 09/25/24 10:00 Proposed Procedures p Esophagogastroduodenoscopy - Tello Marshall MD Date/Time: 09/25/24 09:57 Surgeon: Tello Marshall MD Pre Op Diagnosis: Dysphagia Patient Data Age: 64 Gender: F Height: 1.63 m Weight: 101.1 kg Last Vital Signs Temp 97.5 F L 09/25/24 08:54 Pulse 90 09/25/24 08:54 Resp 16 09/25/24 08:54 BP 140/98 H 09/25/24 08:54 Pulse Ox 97 09/25/24 08:54 O2 Del Method Room Air 09/25/24 08:54 Allergies Allergy/AdvReac Type Severity Reaction Status Date / Time hydrocodone Allergy Intermediate RASH Verified 09/25/24 08:52 bupropion (From Wellbutrin) Allergy Mild Rash Verified 09/25/24 08:52 Home Medications ?Medication ?Instructions ?Recorded ?Confirmed ?Type multivitamin with minerals 1 cap PO DAILY 07/23/19 09/25/24 History (My-Vitalife capsule) apremilast 30 mg tablet (Otezla) 30 mg PO BID 02/03/21 09/25/24 History cholecalciferol (vitamin D3) 50 2,000 unit PO DAILY #90 caps 06/14/21 09/25/24 Rx mcg (2,000 unit) capsule gabapentin 300 mg capsule 300 mg PO QID 06/14/21 09/25/24 History cranberry fruit concentrate 250 mg 250 mg PO TID 05/08/24 09/25/24 History chewable tablet (Azo Cranberry) fluticasone propionate 50 1 spray intranasal DAILY #16 grams 06/04/24 09/24/24 Rx mcg/actuation nasal spray,suspension hydrochlorothiazide 12.5 mg tablet See Rx Instructions .Route 06/18/24 09/25/24 Rx .COMPLEX #90 tabs lisinopril 30 mg tablet See Rx Instructions .Route 06/18/24 09/25/24 Rx .COMPLEX #90 tabs metoprolol succinate 25 mg See Rx Instructions .Route 06/18/24 09/25/24 Rx tablet,extended release 24 hr .COMPLEX #90 tabs omeprazole 20 mg capsule,delayed See Rx Instructions .Route 06/18/24 09/25/24 Rx release .COMPLEX #90 caps simvastatin 80 mg tablet 80 mg PO DAILY #90 tabs 06/18/24 09/25/24 Rx escitalopram oxalate 5 mg tablet 5 mg PO DAILY #30 tabs 09/24/24 09/25/24 Rx (Lexapro) Patient hx anesthesia problems: none Family hx anesthesia problems: none Results Review: All pre-operative results and documents have been reviewed as part of the pre- operative evaluation. [facility] Past Medical History Medical History Cyst Screening mammogram, encounter for Osteopenia Anxiety Chronic UTI Hyperthyroidism History of tobacco use Mixed hyperlipidemia Class 2 obesity with body mass index (BMI) of 38.0 to 38.9 in adult Back pain Accelerated hypertension GERD (gastroesophageal reflux disease) Acute arthritis Benign essential HTN Neuropathy Lumbar radiculopathy, chronic Psoriasis Degeneration of spine Chronic pain Surgical History Surgical History Delivery by section (07/01/87) History of gynecological procedure (09/08/04) T/L ; D&C ; Novasure Ablation ; dysmenorrhea H/O colposcopy with cervical biopsy (09/15/05) colposcopy ; Atypia History of gynecological procedure (12/27/06) supracx hyst with RSO ; pain right ovarian mass / adenomyosis, leiomyomata History of kidney surgery (07/02/09) kidney stones removed S/P breast biopsy, right (08/10/10) right breast calcification History of orthopedic surgery (12/05/17) right hand trigger thumb surgery H/O LEEP (07/15/21) H/O excision of lamina of lumbar vertebra for decompression of spinal cord Family History Family History Father Carcinoma of colon Family history of lung cancer Patient's father is Mother Family history of rheumatoid arthritis Other Alcoholism Family history of arthritis Heart disease Hypertension Social History Social History Social History: Smoking packs per day: 1 Smoking cigarettes per day: 20.0 Years smoked: 34 Smoking pack-years: 34.00 Smoking status: Former smoker Tobacco type: cigarettes Second hand tobacco smoke exposure: Yes Smoking end date: 09/02/19 Alcohol intake: never Substance use: never Substance use type: does not use Do You Feel Safe in your Home?: Yes Lack of Transportation: No Lack of Food: Never True Current Housing: I Have Housing Concerned About Future Housing: No Difficulty Paying Gas/Electric Bills: No Difficulty Paying for Meds: No Currently Unemployed: No Difficulty w/ Childcare or Family Care: No Living arrangements: with family Additional living arrangements comments: Occupation/Education: retired Gender identity (if verbalized by the patient): Female Sexual Orientation (if Verbalized by the Patient): Straight or Heterosexual Spiritual care concerns: No Anes - Eval Final PreProcedure Day of Procedure 09/25/24 09:57 Patient weight: obese Lungs: normal air movement Airway: Mallampati scale and special considerations (R upper incisor w noted chip. ) Neurological: alert and oriented Last oral intake: >/= 8 hours ASA classification: III Emergent: no Anesthetic plan: proceed Anesthesia type and monitoring: general GIVS and standard monitoring Results Review: All pre-operative results and documents have been reviewed as part of the pre- operative evaluation. HTN, hyperlipidemia, ex smoker, BMI 38, pt w dysphagia. Informed Consent: The patient's anesthetic plan and its attendant risks and benefits were discussed with the patient/family/POA. Questions were solicited and answers provided to the satisfaction of the patient/family/POA.
--- NOTE | 2024-09-25 10:03 | PM.IMHP ---
H&P: HPI History of Present Illness Date/Time: 09/25/24 10:03 Chief Complaint: Dysphagia Narrative: patient is seen in the office a few weeks ago, with intermittent dysphagia to solid foods. She is here for EGD. Review of Systems Review of Systems: All systems reviewed & are unremarkable except as noted in HPI and below PMFSH Past Medical History Medical History Cyst Screening mammogram, encounter for Osteopenia Anxiety Chronic UTI Hyperthyroidism History of tobacco use Mixed hyperlipidemia Class 2 obesity with body mass index (BMI) of 38.0 to 38.9 in adult Back pain Accelerated hypertension GERD (gastroesophageal reflux disease) Acute arthritis Benign essential HTN Neuropathy Lumbar radiculopathy, chronic Psoriasis Degeneration of spine Chronic pain Surgical History Surgical History Delivery by section (07/01/87) History of gynecological procedure (09/08/04) T/L ; D&C ; Novasure Ablation ; dysmenorrhea H/O colposcopy with cervical biopsy (09/15/05) colposcopy ; Atypia History of gynecological procedure (12/27/06) supracx hyst with RSO ; pain right ovarian mass / adenomyosis, leiomyomata History of kidney surgery (07/02/09) kidney stones removed S/P breast biopsy, right (08/10/10) right breast calcification History of orthopedic surgery (12/05/17) right hand trigger thumb surgery H/O LEEP (07/15/21) H/O excision of lamina of lumbar vertebra for decompression of spinal cord Family History Family History Father Carcinoma of colon Family history of lung cancer Patient's father is Mother Family history of rheumatoid arthritis Other Alcoholism Family history of arthritis Heart disease Hypertension Social History Social History Social History: Smoking packs per day: 1 Smoking cigarettes per day: 20.0 Years smoked: 34 Smoking pack-years: 34.00 Smoking status: Former smoker Tobacco type: cigarettes Second hand tobacco smoke exposure: Yes Smoking end date: 09/02/19 Alcohol intake: never Substance use: never Substance use type: does not use Do You Feel Safe in your Home?: Yes Lack of Transportation: No Lack of Food: Never True Current Housing: I Have Housing Concerned About Future Housing: No Difficulty Paying Gas/Electric Bills: No Difficulty Paying for Meds: No Currently Unemployed: No Difficulty w/ Childcare or Family Care: No Living arrangements: with family Additional living arrangements comments: Occupation/Education: retired Gender identity (if verbalized by the patient): Female Sexual Orientation (if Verbalized by the Patient): Straight or Heterosexual Spiritual care concerns: No Meds Home Medications and Allergies Home Medications ?Medication ?Instructions ?Recorded ?Confirmed ?Type multivitamin with minerals 1 cap PO DAILY 07/23/19 09/25/24 History (My-Vitalife capsule) apremilast 30 mg tablet (Otezla) 30 mg PO BID 02/03/21 09/25/24 History cholecalciferol (vitamin D3) 50 2,000 unit PO DAILY #90 caps 06/14/21 09/25/24 Rx mcg (2,000 unit) capsule gabapentin 300 mg capsule 300 mg PO QID 06/14/21 09/25/24 History cranberry fruit concentrate 250 mg 250 mg PO TID 05/08/24 09/25/24 History chewable tablet (Azo Cranberry) fluticasone propionate 50 1 spray intranasal DAILY #16 grams 06/04/24 09/24/24 Rx mcg/actuation nasal spray,suspension hydrochlorothiazide 12.5 mg tablet See Rx Instructions .Route 06/18/24 09/25/24 Rx .COMPLEX #90 tabs lisinopril 30 mg tablet See Rx Instructions .Route 06/18/24 09/25/24 Rx .COMPLEX #90 tabs metoprolol succinate 25 mg See Rx Instructions .Route 06/18/24 09/25/24 Rx tablet,extended release 24 hr .COMPLEX #90 tabs omeprazole 20 mg capsule,delayed See Rx Instructions .Route 06/18/24 09/25/24 Rx release .COMPLEX #90 caps simvastatin 80 mg tablet 80 mg PO DAILY #90 tabs 06/18/24 09/25/24 Rx escitalopram oxalate 5 mg tablet 5 mg PO DAILY #30 tabs 09/24/24 09/25/24 Rx (Lexapro) Allergies Allergy/AdvReac Type Severity Reaction Status Date / Time hydrocodone Allergy Intermediate RASH Verified 09/25/24 08:52 bupropion (From Wellbutrin) Allergy Mild Rash Verified 09/25/24 08:52 Vital Signs Vital Signs - 24 hr 09/25/24 08:54 Temperature 97.5 F L Pulse Rate 90 Respiratory Rate 16 Blood Pressure 140/98 H Pulse Oximetry 97 Oxygen Delivery Room Air Exam Const: General: cooperative and healthy appearing Resp: Effort & Inspection: normal respiratory effort and able to speak in complete sentences Auscultation: clear to auscultation bilaterally Cardio: Rate: regular rate Rhythm: regular rhythm GI: Inspection: normal to inspection GI Palp: No No hepatosplenomegaly present Auscultation: normal bowel sounds Rectal Exam: deferred Skin: General skin exam: normal color Psych: Appearance: grossly normal Mental Status: mental status grossly normal Assessment and Plan Assessment and plan (1) Dysphagia: Code(s): R13.10 - Dysphagia, unspecified Status: Acute Assessment and Plan: The patient is deemed a good candidate for the procedure. Consent signed. Will proceed.
[2024-09-25 10:24] VITALS: BP 129/73; PULSE 88; RESP 19; O2SAT 97
[2024-09-25 10:34] VITALS: BP 136/72; PULSE 77; RESP 18; O2SAT 98
[2024-09-25 10:44] VITALS: BP 133/70; PULSE 75; RESP 18; O2SAT 100
== END 2024-09-25 11:09 | disposition home or self-care (01) ==
PROVIDERS: PCP Family Medicine; Visit Provider Internal Medicine Gastroenterology
PROC: 0DJ08ZZ Inspection of Upper Intestinal Tract, Via Natural or Artificial Opening Endoscopic (ICD-10-PCS; CPT 43239; principal; 2024-09-25 10:00)
DX: K29.30 Chronic superficial gastritis without bleeding (principal); K31.7 Polyp of stomach and duodenum; K31.9 Disease of stomach and duodenum, unspecified; E78.2 Mixed hyperlipidemia; I10 Essential (primary) hypertension; K21.9 Gastro-esophageal reflux disease without esophagitis; F41.9 Anxiety disorder, unspecified; E05.90 Thyrotoxicosis, unspecified without thyrotoxic crisis or storm; M85.89 Other specified disorders of bone density and structure, multiple sites; N39.0 Urinary tract infection, site not specified; G62.9 Polyneuropathy, unspecified; M54.16 Radiculopathy, lumbar region; L40.9 Psoriasis, unspecified; G89.29 Other chronic pain; M19.90 Unspecified osteoarthritis, unspecified site; E66.9 Obesity, unspecified; Z68.38 Body mass index [BMI] 38.0-38.9, adult; Z98.890 Other specified postprocedural states; Z98.1 Arthrodesis status; Z87.891 Personal history of nicotine dependence; Z87.442 Personal history of urinary calculi; Z80.0 Family history of malignant neoplasm of digestive organs; Z80.1 Family history of malignant neoplasm of trachea, bronchus and lung; Z82.49 Family history of ischemic heart disease and other diseases of the circulatory system
CPT/HCPCS: 43239; 88305; J2704; J7120

== ENCOUNTER 2024-10-10 14:14 | Outpatient (CLI) | payer MEDICARE, SELFPAY ==
--- NOTE | ~2024-10-10 | DEXA_ITS ---
Bone Density Report Name: RACHELLE ISLAS Age: 64 Sex: Female Ethnicity: White Date of : 1960 Indication: postmenopausal; screening for osteoporosis; hysterectomy; Referring Provider: PA AGRAWAL Study: Bone densitometry was performed. Exam Date: October 10, 2024 Accession number: [id number] Bone Density: Region BMD T-score Z-score Classification AP Spine(L1-L4) 0.991 -0.5 1.1 Normal Femoral Neck (Left) 0.670 -1.6 -0.2 Osteopenia Total Hip (Left) 1.001 0.5 1.6 Normal Femoral Neck (Right) 0.700 -1.3 0.1 Osteopenia Total Hip (Right) 0.976 0.3 1.4 Normal Total Hip Mean 0.988 0.4 1.5 Normal World Health Organization criteria for BMD impression classify patients as: Normal (T-score at or above -1.0), Osteopenia (T-score between -1.0 and -2.5), or Osteoporosis (T-score at or below -2.5). 10-year Fracture Risk(1): Major Osteoporotic Fracture 8.1% Hip Fracture 0.8% Reported Risk Factors: [place] (), Neck BMD=0.670, BMI=37.6 (1) FRAX(R) Version 3.08. Fracture probability calculated for an untreated patient. Fracture probability may be lower if the patient has received treatment. Previous Exams: Region Exam Age BMD T-score BMD Change BMD Change Date g/cm2 vs Baseline vs Previous AP Spine (L1-L4) 10/10/2024 64 0.991 -0.5 -0.090 (-8.3%) 0.021 (2.2%)05/19/2022 62 0.970 -0.7 -0.111 (-10.2% -0.111 (-10.2% 11/11/2017 57 1.081 0.3 Total Hip(Left) 10/10/2024 64 1.001 0.5 -0.145 (-12.6% 0.007 (0.7%)# 05/19/2022 62 0.994 0.4 -0.151 (-13.2% -0.151 (-13.2% 11/11/2017 57 1.146 1.7 Total Hip(Right) 10/10/2024 64 0.976 0.3 -0.165 (-14.4% 0.009 (0.9%)05/19/2022 62 0.967 0.2 -0.174 (-15.2% -0.174 (-15.2% 11/11/2017 57 1.140 1.6 *Denotes significance at 95% confidence level, LSC for AP Spine = 0.022 g/cm2, LSC for Total Hip = 0.027 g/cm2 # Denotes dissimilar scan types or analysis methods Clinical Information Provided by Patient: Has used the following medications: Vitamin D Has the following medical conditions: Hysterectomy Patient maximum height was 64 Drinks caffeinated beverages Onset of menses at age 14 Number of children 1 Impression: The patient has low bone mass, based on the Left Femoral Neck T-score. The patient has an estimated ten-year risk of hip fracture of 0.8% and an estimated ten-year risk of major fracture of 8.1%, based on the WHO FRAX algorithm. No significant bone loss was observed. Discussion: BONE DENSITY IS LOW AT ONE OR MORE SKELETAL SITES. This patient's lowest T-score is low at one or more skeletal sites. It meets the World Health Organization's (WHO) criteria for ?low bone mass? (T-score between -1.0 and -2.5). The patient's 10-year risk of fracture as calculated by FRAX is less than the threshold where pharmacological therapy is recommended by the National Osteoporosis Foundation (NOF). However, all treatment decisions require clinical judgment and consideration of individual patient factors, including patient preferences, comorbidities, previous drug use, risk factors not captured in the FRAX model (e.g., frailty, falls, vitamin D deficiency, increased bone turnover, interval significant decline in bone density) and possible under or overestimation of fracture risk by FRAX. The patient should follow a healthful lifestyle (good nutrition with adequate calcium and vitamin D, and appropriate weight-bearing exercise). Follow-Up: Consider repeating this study in 2 to 3 years to reassess this patient's status, or sooner if there is some new clinical indication. Reported by: BRYCE on 10/10/2024 2:55:00 PM. Reviewed, dictated and finalized at location AHumberto CROCKETT
--- OUTSIDE RECORDS SUMMARY | 2024-10-10 16:02 | XMS_ITS | Clinical Summary ---
Author Organization [facility] Address [address] [place] [address] Care Team Providers Care Ship Design Teacher Name Role Phone Petra Doll MD Primary [...] age to complete this topic Insurance [facility] Care Teams Ship Design Teacher Relationship Specialty Start Date End Date Petra Doll MD [address] [facility] [address] [place] [address] PCP - General Family Medicine 02/07/19
--- OUTSIDE RECORDS SUMMARY | 2024-10-10 16:02 | XMS_ITS | Clinical Summary ---
Author Organization [facility] Address [address] [place] [address] Care Team Providers Care Rate Engineer Name Role Phone Petra Doll MD Primary Care Provider + Source Comments [facility],non-owned Affiliates and Associated Physician Practices is amultiple site organization consisting of ambulatory clinics and hospital sitesin [place], [place], [place] and [place]. This disclosure is being madepursuant to the Care Everywhere program and may not contain all information available regarding this patient. Last updated 18.[facility] Allergies Active Allergy Reactions Criticality Noted Date [...] times daily 60 Tab 5 11/18/2015 Active Encounters Date Type Department Care Team Description 09/26/2024 Lab Requisition [facility] - DermPath Lab [address], [place] [address] Jesús Paredes MD Neoplasm of unspecified behavior of bone, soft tissue, and skin; Melanocytic nevi of trunk; Other disturbances of skin sensation from Last 3 Months Family History Medical History Relation Name Comments [...] 50+ (1 of 2 - PCV) 1981 ZOSTER VACCINE (1 of 2) 02/15/2012 COVID-19 VACCINE (1 - 2023-2 5 season) 2024 INFLUENZA VACCINE [...] to complete this topic MENINGOCOCCAL (Group B) VACC INE SHARED DECISION-MAKING Aged Out No longer eligibl e based on patient's age to complete this topic MENINGOCOCCAL GROUPS A/C/Y/W VACCINE Aged Out No longer eligible b ased on patient's age to complete this topic Procedures Procedure Name Priority Date/Time Associated Diagnosis Comments DERMATOPATHOLOGY Routine 09/26/2024 12:0 0 AM WESTERN FELT HAT BLOCKER Neoplasm of unspecified behavior of bone, soft tissue, and skin Melanocytic nevi of trunk Other disturbances of skin sensation from Last 3 Months Results * DERMATOPATHOLOGY (09/26/2024 12:00 AM WESTERN FELT HAT BLOCKER) Case Report Dermatopathology Report Case: [id number] Authorizing Provider: Jesús Paredes MD Collected: 09/26/2024 12:00 AM Ordering Location: [facility] - Received: 09/27/2024 12:55 PM DermPath Lab Pathologist: Jeni Horvath MD Specimens: A) - Skin, right mid back B) - Skin, right lower back 12:43 PM [employer]ERN F[employer]T [employer] DERMATOPATHOLOGY LABORATORY Final Diagnosis Specimen A. 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 SKIN, right lower back: ACROCHORDON (SOFT FIBROMA, SKIN TAG) (L91.8) 12:43 PM WESTERN FELT HAT BLOCKER DERMATOPATHOLOGY LABORATORY Clinical History A: Neoplasm of Unspecified Behavior vs Nevus, R/O Atypia B: Benign Nevus 12:43 PM [facility] DERMATOPATHOLOGY LABORATORY Gross Description Specimen A: Received is one formalin filled container labeled with the patient's name and designated right mid back. The specimen consists of a shave biopsy measuring 9x6x1 mm. Jar 0. Specimen B: Received is one formalin filled container labeled with the patients name and designated right lower back. The specimen consists of a shave removal measuring 5x4x4 mm. Jar 0. 12:43 PM [facility] DERMATOPATHOLOGY LABORATORY Microscopic Description Specimen A. SKIN, right mid back: This is a junctional nevus. There is a lentiginous proliferation of melanocytes between nevus nests of cells along the dermal-epidermal junction. There is underlying lamellar fibroplasia of the papillary dermis. (Junctional Jason's Nevus) This lesion is present at the margin of the specimen. COMMENT: If this specimen is sampled from a larger lesion, these findings may not be pharmaceutical service representative of the entire lesion. Clinicopathologic correlation is recommended. Specimen B. SKIN, right lower back: There is a gently folded epidermis surrounding a connective tissue core in which fat and collagen are intermingled. 12:43 PM [facility] DERMATOPATHOLOGY LABORATORY Disclaimer An external and internal positive and negative controls are appropriate for the histochemical, immunohistochemical and immunofluorescence stain(s) in this case (if any), except where stated explicitly. The performance characteristics of the stain(s) cited in this report were developed and its performance characteristic determined by the Dermatopathology Laboratory at [facility], directed by Dr. Ximena Wick. These tests need not be, and therefore are not, approved by the [place] Food and Drug Administration. The tests are used for clinical purposes. Billing Codes Specimen Charges Stain Charges 74715 51232 1 1 12:43 PM [facility] DERMATOPATHOLOGY LABORATORY Embedded Images 12:43 PM [facility] DERMATOPATHOLOGY LABORATORY Pathology/Cytology TISSUE SPECIMEN FROM SKIN / Unknown 09/26/2024 09/27/2024 12:55 PM WE[employer]ERN F[employer]T H[employer] BLOCKER Miscellaneous samples (specimen) TISSUE SPECIMEN FROM SKIN / Unknown 09/26/2024 09/27/2024 12:55 PM WESTERN F[employer]T HAT BLOCKER Jesús Paredes MD LAB - PATHOLOGY/ CYTOLOGY ORDERABLES DERMATOPATHOLOGY LABORATORY [facility] - Department of Dermatology [facility] Medicine [address] [place] [address], [facility] [phone] from Last 3 Months Care Teams Rate Engineer Relationship Specialty Start Date End Date Petra Doll MD [address] [place] [address] PCP - General Family Medicine 11/18/15
--- OUTSIDE RECORDS SUMMARY | 2024-10-10 16:02 | XMS_ITS | Patient Health Summary ---
Author Organization [facility] Address [address] [place] [address] Care Team Providers Care Poured Pipe Maker Name Role Phone Petra Doll MD Primary Care Provider + Note from [facility],non-owned Affiliates and Associated Physician Practices is amultiple site organization consisting of ambulatory clinics and hospital sitesin [place], [place], [place] and [place]. This disclosure is being madepursuant to the Care Everywhere program and may not contain all information available regarding this patient. Last updated 18.[facility] Allergies * Hydrocodone-Acetaminophen(Rash) -Low Criticality Medications [...] 34.33 11/18/2015 1:44 PM CDT Procedures * DERMATOPATHOLOGY(Performed 09/26/2024) Performed for Neoplasm of unspecified behavior of bone, soft tissue, and skin, Melanocytic nevi of trunk, Other disturbances of skin sensation * LAB HISTORICAL RESULTS-ONBASE(Performed 06/23/2012) Results * DERMATOPATHOLOGY (09/26/2024 12:00 AM [facility]) Case Report Dermatopathology Report Case: [id number] Authorizing Provider: Jesús Paredes MD Collected: 09/26/2024 12:00 AM Ordering Location: [facility] - Received: 09/27/2024 12:55 PM DermPath Lab Pathologist: Jeni Horvath MD Specimens: A) - Skin, right mid back B) - Skin, right lower back 12:43 PM [facility] DERMATOPATHOLOGY LABORATORY Final Diagnosis Specimen A. 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 SKIN, right lower back: ACROCHORDON (SOFT FIBROMA, SKIN TAG) (L91.8) 12:43 PM [facility] DERMATOPATHOLOGY LABORATORY Clinical History A: Neoplasm of Unspecified Behavior vs Nevus, R/O Atypia B: Benign Nevus 12:43 PM [facility] DERMATOPATHOLOGY LABORATORY Gross Description Specimen A: Received [...] measuring 5x4x4 mm. Jar 0. 12:43 PM [facility] DERMATOPATHOLOGY LABORATORY Microscopic Description Specimen A. SKIN, [...] larger lesion, these findings may not be surgical sales representative of the entire lesion. Clinicopathologic correlation is recommended. Specimen B. SKIN, right lower back: There is a gently folded epidermis surrounding a connective tissue core in which fat and collagen are intermingled. 12:43 PM [facility] DERMATOPATHOLOGY LABORATORY Disclaimer An external and internal positive and negative controls are appropriate for the histochemical, immunohistochemical and immunofluorescence stain(s) in this case (if any), except where stated explicitly. The performance characteristics of the stain(s) cited in this report were developed and its performance characteristic determined by the Dermatopathology Laboratory at [facility], directed by Dr. Ximena Wick. These tests need not be, and therefore are not, approved by the [place] Food and Drug Administration. The tests are used for clinical purposes. Billing Codes Specimen Charges Stain Charges 80598 56033 1 1 12:43 PM [facility] DERMATOPATHOLOGY LABORATORY Embedded Images 12:43 PM [facility] DERMATOPATHOLOGY LABORATORY Pathology/Cytology TISSUE SPECIMEN FROM SKIN / Unknown 09/26/2024 09/27/2024 12:55 PM DATA MANAGEMENT SPECIALIST Miscellaneous samples (specimen) TISSUE SPECIMEN FROM SKIN / Unknown 09/26/2024 09/27/2024 12:55 PM DATA MANAGEMENT SPECIALIST Jesús Paredes MD LAB - PATHOLOGY/ CYTOLOGY ORDERABLES DERMATOPATHOLOGY LABORATORY [facility] - Department of Dermatology [facility] [address] [place] [address], [facility] [phone] * LAB HISTORICAL RESULTS-ONBASE (06/23/2012) 06/23/[address] [facility] - 01/25/2013 10:19 AM CDT Historical Provider MD LAB - CHEMISTRY O RDERABLES [facility] [address] Care Teams Poured Pipe Maker Relationship Specialty Start Date End Date Petra Doll MD [address] [place] [address] PCP - General Family Medicine 11/18/15
--- OUTSIDE RECORDS SUMMARY | 2024-10-10 16:02 | XMS_ITS | Referral Summary ---
Author Organization [facility] Address [address] [place] [address] Care Team Providers Care Steam Service Inspector Name Role Phone Petra Doll MD Primary [...] Treatment Not on file [place] [address] [facility] [employer] [address] [facility] [employer] Care Teams Steam Service Inspector Relationship Specialty Start Date End Date Petra Doll MD [address] [email or web address] [address] [place] [address] PCP - General Family Medicine 02/07/19
--- OUTSIDE RECORDS SUMMARY | 2024-10-10 16:02 | XMS_ITS | Referral Summary ---
Author Organization [facility] Address [address] [place] [address] Care Team Providers Care Stretching Machine Tender Frame Name Role Phone Petra Doll MD Primary Care Provider + Source Comments [facility],non-owned Affiliates and Associated Physician Practices is amultiple site organization consisting of ambulatory clinics and hospital sitesin [place], [place], [place] and [place]. This disclosure is being madepursuant to the Care Everywhere program and may not contain all information available regarding this patient. Last updated 18.[facility] Encounters Date Type Department Care Team Description 09/26/2024 Lab Requisition [facility] - DermPath Lab [address] [place] [id number] Jesús Paredes MD Neoplasm of unspecified behavior of bone, soft tissue, and skin; Melanocytic nevi of trunk; Other disturbances of skin sensation from Last 3 Months Allergies Active Allergy Reactions Criticality Noted Date [...] CDT Plan of Treatment Not on file Procedures Procedure Name Priority Date/Time Associated Diagnosis Comments DERMATOPATHOLOGY Routine 09/26/2024 12:0 0 AM DAY WORKER Neoplasm of unspecified behavior of bone, soft tissue, and skin Melanocytic nevi of trunk Other disturbances of skin sensation from Last 3 Months Results * DERMATOPATHOLOGY (09/26/2024 12:00 AM DAY WORKER) Case Report Dermatopathology Report Case: [id number] Authorizing Provider: Jesús Paredes MD Collected: 09/26/2024 12:00 AM Ordering Location: [facility] Physician [facility] - Received: 09/27/2024 12:55 PM DermPath Lab Pathologist: Jeni Horvath MD Specimens: A) - Skin, right mid back B) - Skin, right lower back 12:43 PM DAY WORKER DERMATOPATHOLOGY LABORATORY Final Diagnosis Specimen A. 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 SKIN, right lower back: ACROCHORDON (SOFT FIBROMA, SKIN TAG) (L91.8) 12:43 PM [facility] DERMATOPATHOLOGY LABORATORY Clinical History A: Neoplasm of Unspecified Behavior vs Nevus, R/O Atypia B: Benign Nevus 12:43 PM [facility] DERMATOPATHOLOGY LABORATORY Gross Description Specimen A: [...] measuring 5x4x4 mm. Jar 0. 12:43 PM [facility] DERMATOPATHOLOGY LABORATORY Microscopic Description Specimen A. [...] larger lesion, these findings may not be textile designs sales representative of the entire lesion. Clinicopathologic correlation is recommended. Specimen B. SKIN, right lower back: There is a gently folded epidermis surrounding a connective tissue core in which fat and collagen are intermingled. 12:43 PM [facility] DERMATOPATHOLOGY LABORATORY Disclaimer An external and internal positive and negative controls are appropriate for the histochemical, immunohistochemical and immunofluorescence stain(s) in this case (if any), except where stated explicitly. The performance characteristics of the stain(s) cited in this report were developed and its performance characteristic determined by the Dermatopathology Laboratory at [facility], directed by Dr. Ximena Wick. These tests need not be, and therefore are not, approved by the [place] Food and Drug Administration. The tests are used for clinical purposes. Billing Codes Specimen Charges Stain Charges [id number] 1 1 12:43 PM [facility] DERMATOPATHOLOGY LABORATORY Embedded Images 12:43 PM DAY WORKER DERMATOPATHOLOGY LABORATORY Pathology/Cytology TISSUE SPECIMEN FROM SKIN / Unknown 09/26/2024 09/27/2024 12:55 PM DAY WORKER Miscellaneous samples (specimen) TISSUE SPECIMEN FROM SKIN / Unknown 09/26/2024 09/27/2024 12:55 PM DAY WORKER Jesús Paredes MD LAB - PATHOLOGY/ CYTOLOGY ORDERABLES DERMATOPATHOLOGY LABORATORY [facility] - Department of Dermatology [facility] Medicine [address] [phone] from Last 3 Months Care Teams Stretching Machine Tender Frame Relationship Specialty Start Date End Date Petra Doll MD [address] [place] [address] PCP - General Family Medicine 11/18/15
--- OUTSIDE RECORDS SUMMARY | 2024-10-10 16:02 | XMS_ITS | Encounter Summary ---
Author Organization [facility] Address [address] [place] [address] Care Team Providers Care Smart Grid Engineer Name Role Phone Petra Doll MD Primary Care Provider + Encounter Details Date Type Department Care Team (Late st Contact Info) Description 09/26/2024 Lab Requisition [facility] - DermPath Lab [address] [place] [address] Jesús Paredes MD [address] [place] [address] Neoplasm of unspecified behavior of bone, soft tissue, and skin; Melanocytic nevi of trunk; Other disturbances of skin sensation Social History Tobacco Use Types Packs/Day Years Used Date Smoking Tobacco: Every Day Cigarettes Smokeless Tobacco: Never Alcohol Use Standard Drinks/Week Comments No 0 (1 standard drink = 0.6 oz pur e alcohol) Sex and Gender Information Value Date Recorded Sex Assigned at Not on file Gender Identity Not on file Sexual Orientation Not on file documented as of this encounter Plan of Treatment Not on file documented as of this encounter Procedures Procedure Name Priority Date/Time Associated Diagnosis Comments DERMATOPATHOLOGY Routine 09/26/2024 12:0 0 AM SILK WINDING MACHINE OPERATOR Neoplasm of unspecified behavior of bone, soft tissue, and skin Melanocytic nevi of trunk Other disturbances of skin sensation documented in this encounter Results * DERMATOPATHOLOGY (09/26/2024 12:00 AM SILK WINDING MACHINE OPERATOR) Case Report Dermatopathology Report Case: [id number] Authorizing Provider: Jesús Paredes MD Collected: 09/26/2024 12:00 AM Ordering Location: [facility] - Received: 09/27/2024 12:55 PM DermPath Lab Pathologist: Jeni Horvath MD Specimens: A) - Skin, right mid back B) - Skin, right lower back 12:43 PM SILK WINDING MACHINE OPERATOR DERMATOPATHOLOGY LABORATORY Final Diagnosis Specimen A. 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 SKIN, right lower back: ACROCHORDON (SOFT FIBROMA, SKIN TAG) (L91.8) 12:43 PM SILK WINDING MACHINE OPERATOR DERMATOPATHOLOGY LABORATORY Clinical History A: Neoplasm of Unspecified Behavior vs Nevus, R/O Atypia B: Benign Nevus 12:43 PM SILK WINDING MACHINE OPERATOR DERMATOPATHOLOGY LABORATORY Gross Description Specimen A: Received [...] measuring 5x4x4 mm. Jar 0. 12:43 PM SILK WINDING MACHINE OPERATOR DERMATOPATHOLOGY LABORATORY Microscopic Description Specimen A. SKIN, [...] larger lesion, these findings may not be litigation claim representative of the entire lesion. Clinicopathologic correlation is recommended. Specimen B. SKIN, right lower back: There is a gently folded epidermis surrounding a connective tissue core in which fat and collagen are intermingled. 12:43 PM SILK WINDING MACHINE OPERATOR DERMATOPATHOLOGY LABORATORY Disclaimer An external and internal positive and negative controls are appropriate for the histochemical, immunohistochemical and immunofluorescence stain(s) in this case (if any), except where stated explicitly. The performance characteristics of the stain(s) cited in this report were developed and its performance characteristic determined by the Dermatopathology Laboratory at [facility], directed by Dr. Ximena Wick. These tests need not be, and therefore are not, approved by the [place] Food and Drug Administration. The tests are used for clinical purposes. Billing Codes Specimen Charges Stain Charges 85623 42371 1 1 12:43 PM SILK WINDING MACHINE OPERATOR DERMATOPATHOLOGY LABORATORY Embedded Images 12:43 PM SILK WINDING MACHINE OPERATOR DERMATOPATHOLOGY LABORATORY Pathology/Cytology TISSUE SPECIMEN FROM SKIN / Unknown 09/26/2024 09/27/2024 12:55 PM SILK WINDING MACHINE OPERATOR Miscellaneous samples (specimen) TISSUE SPECIMEN FROM SKIN / Unknown 09/26/2024 09/27/2024 12:55 PM SILK WINDING MACHINE OPERATOR Jesús Paredes MD LAB - PATHOLOGY/ CYTOLOGY ORDERABLES DERMATOPATHOLOGY LABORATORY [facility] - Department of Dermatology [facility] [address] [place] [address], [address] [phone] documented in this encounter Visit Diagnoses Diagnosis Neoplasm of unspecified behavior of bone, soft tissue, and skin Melanocytic nevi of trunk Benign neoplasm of skin of trunk, except scrotum Other disturbances of skin sensation documented in this encounter Care Teams Smart Grid Engineer Relationship Specialty Start Date End Date Petra Doll MD [address] [place] [address] PCP - General Family Medicine 11/18/15 documented as of this encounter
== END 2024-10-10 14:15 | disposition home or self-care (01) ==
LOC: ANHIMG 14:15
PROVIDERS: PCP Family Medicine; Visit Provider Internal Medicine Endocrinology, Diabetes & Metabolism
DX: Z78.0 Asymptomatic menopausal state (principal); E05.90 Thyrotoxicosis, unspecified without thyrotoxic crisis or storm; E27.8 Other specified disorders of adrenal gland; E04.1 Nontoxic single thyroid nodule; M85.852 Other specified disorders of bone density and structure, left thigh; M85.851 Other specified disorders of bone density and structure, right thigh
CPT/HCPCS: 77080

== ENCOUNTER 2024-10-14 12:44 | Outpatient (CLI) | payer MEDICARE, SELFPAY ==
--- NOTE | ~2024-10-14 | US_ITS ---
US thyroid INDICATION: Thyroid nodule follow-up TECHNIQUE: Real-time sonographic images of the thyroid gland were obtained. COMPARISON: Ultrasound dated 12/28/2021 FINDINGS: The right thyroid lobe measures 5.3 x 3.1 x 3.3 cm. The left thyroid lobe measures 3.3 x 3 .8 x 2.8 cm. There is homogeneous echotexture and echogenicity throughout the thyroid gland. There is a small septated cyst measuring 6 mm in the right thyroid lobe which is likely benign. There is an 5 mm hypoechoic solid mass which is wider than tall, smoothly marginated without echogenic foci, TR 4, which does not meet sonographic criteria for biopsy. In the left lobe there is a heterogeneous irreg ular shaped mass which has developed since prior study measuring 3.3 x 3 x 6 cm. The margins are loreto stinct. The mass is taller than wide, solid predominantly hypoechoic with irregular margins and no di stinct internal echogenic foci, TR 5.. Normal vascular flow is present. IMPRESSION: 1. Suspicious left thyroid mass, TR 5. Ultrasound-guided fine-needle aspiration biopsy recommended. Reviewed, dictated and finalized at location B.
== END 2024-10-14 12:45 | disposition home or self-care (01) ==
LOC: MICIMG 12:46
PROVIDERS: PCP Family Medicine; Visit Provider Internal Medicine Endocrinology, Diabetes & Metabolism
DX: E04.1 Nontoxic single thyroid nodule (principal); E05.90 Thyrotoxicosis, unspecified without thyrotoxic crisis or storm; E27.8 Other specified disorders of adrenal gland; M85.80 Other specified disorders of bone density and structure, unspecified site; Z78.0 Asymptomatic menopausal state
CPT/HCPCS: 76536

== ENCOUNTER 2024-10-18 09:15 | Outpatient (CLI) | payer MEDICARE, SELFPAY ==
--- NOTE | ~2024-10-18 | US_ITS ---
EXAMINATION: US FNA w image guidance DATE: 10/18/2024 11:00 INDICATION: 6 cm Ti RADS 5 left thyroid nodule TECHNIQUE: A time-out was performed to verify the patient's name, date of , and procedure to be performed . The procedure and its benefits and risks were discussed with the patient. Risks specifically discus sed included bleeding and infection. The patient understood the risks and agreed to proceed. The neck was prepped and draped in the usual sterile manner. 5 mL 1% lidocaine was used for local anesthesia . 8 passes were made with a 25G needle into the lesion. Appropriate needle location was documented with continuous sonographic guidance. A sterile bandage was applied. There were no immediate compli cations. FINDINGS: Grayscale ultrasound images demonstrate biopsy needles advanced into a large heterogeneously hypoecho ic mass with ill-defined margins in the deep inferior left thyroid lobe. The visualized portion measu res at least 3 cm in depth and extends beyond the [id number]. IMPRESSION: 1. Successful ultrasound-guided fine needle aspiration of the previously noted large poorly defined mass at the inferior left thyroid. Reviewed, dictated and finalized at location A.
--- OUTSIDE RECORDS SUMMARY | 2024-10-18 10:18 | XMS_ITS | Encounter Summary ---
Author Organization [facility] Address [address] [place] [address] Care Team Providers Care M1 Armor Crewman Name Role Phone Petra Doll MD Primary Care Provider + Encounter Details Date Type Department Care Team (Late st Contact Info) Description 09/26/2024 Lab Requisition [facility] - DermPath Lab [address] [place] [address] Jesús Paredes MD [address] [place] [address] Neoplasm of unspecified behavior of [...] Comments DERMATOPATHOLOGY Routine 09/26/2024 12:0 0 AM HARPSICHORD MAKER Neoplasm of unspecified behavior of bone, soft tissue, and skin Melanocytic nevi of trunk Other disturbances of skin sensation documented in this encounter Results * DERMATOPATHOLOGY (09/26/2024 12:00 AM HARPSICHORD MAKER) Case Report Dermatopathology Report Case: [id number] Authorizing Provider: Jesús Paredes MD Collected: 09/26/2024 12:00 AM Ordering Location: [facility] - Received: 09/27/2024 12:55 PM DermPath Lab Pathologist: Jeni Horvath MD Specimens: A) - Skin, right mid back B) - Skin, right lower back 12:43 PM HARPSICHORD MAKER DERMATOPATHOLOGY LABORATORY Final Diagnosis Specimen A. 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 SKIN, right lower back: ACROCHORDON (SOFT FIBROMA, SKIN TAG) (L91.8) 12:43 PM HARPSICHORD MAKER DERMATOPATHOLOGY LABORATORY Clinical History A: Neoplasm of Unspecified Behavior vs Nevus, R/O Atypia B: Benign Nevus 12:43 PM HARPSICHORD MAKER DERMATOPATHOLOGY LABORATORY Gross Description Specimen A: Received [...] measuring 5x4x4 mm. Jar 0. 12:43 PM HARPSICHORD MAKER DERMATOPATHOLOGY LABORATORY Microscopic Description Specimen A. SKIN, [...] larger lesion, these findings may not be customer solutions representative of the entire lesion. Clinicopathologic correlation is recommended. Specimen B. SKIN, right lower back: There is a gently folded epidermis surrounding a connective tissue core in which fat and collagen are intermingled. 12:43 PM HARPSICHORD MAKER DERMATOPATHOLOGY LABORATORY Disclaimer An external and internal positive and negative controls are appropriate for the histochemical, immunohistochemical and immunofluorescence stain(s) in this case (if any), except where stated explicitly. The performance characteristics of the stain(s) cited in this report were developed and its performance characteristic determined by the Dermatopathology Laboratory at [facility], directed by Dr. Ximena Wick. These tests need not be, and therefore are not, approved by the [place] Food and Drug Administration. The tests are used for clinical purposes. Billing Codes Specimen Charges Stain Charges 01364 [id number] 1 1 12:43 PM HARPSICHORD MAKER DERMATOPATHOLOGY LABORATORY Embedded Images 12:43 PM HARPSICHORD MAKER DERMATOPATHOLOGY LABORATORY Pathology/Cytology TISSUE SPECIMEN FROM SKIN / Unknown 09/26/2024 09/27/2024 12:55 PM HARPSICHORD MAKER Miscellaneous samples (specimen) TISSUE SPECIMEN FROM SKIN / Unknown 09/26/2024 09/27/2024 12:55 PM HARPSICHORD MAKER Jesús Paredes MD LAB - PATHOLOGY/ CYTOLOGY ORDERABLES DERMATOPATHOLOGY LABORATORY [facility] - Department of Dermatology [facility] [address] [place] [address], [address] [phone] documented in this encounter Visit Diagnoses Diagnosis Neoplasm of unspecified behavior of bone, soft tissue, and skin Melanocytic nevi of trunk Benign neoplasm of skin of trunk, except scrotum Other disturbances of skin sensation documented in this encounter Care Teams M1 Armor Crewman Relationship Specialty Start Date End Date Petra Doll MD [address] [place] [address] PCP - General Family Medicine 11/18/15 documented as of this encounter
--- OUTSIDE RECORDS SUMMARY | 2024-10-18 10:18 | XMS_ITS | Referral Summary ---
Author Organization [facility] Address [address] [place] [address] Care Team Providers Care Bar Useful Or Busser Name Role Phone Petra Doll MD Primary [...] Treatment Not on file [place] [address] [facility] [address] [facility] Care Teams Bar Useful Or Busser Relationship Specialty Start Date End Date Petra Doll MD [address] [facility] [address] [place] [address] PCP - General Family Medicine 02/07/19
--- OUTSIDE RECORDS SUMMARY | 2024-10-18 10:18 | XMS_ITS | Clinical Summary ---
Author Organization [facility] Address [address] [place] [address] Care Team Providers Care Drafter Detail Name Role Phone Petra Doll MD Primary Care Provider + Source Comments [facility],non-owned Affiliates and Associated Physician Practices is amultiple site organization consisting of ambulatory clinics and hospital sitesin [place], [place], [place] and [place]. This disclosure is being madepursuant to the Care Everywhere program and may not contain all information available regarding this patient. Last updated 18.[facility] Allergies Active Allergy Reactions Criticality Noted Date [...] Department Care Team Description 09/26/2024 Lab Requisition [facility] - DermPath Lab [address], [place] [address] Jesús Paredes MD Neoplasm of unspecified behavior [...] Comments DERMATOPATHOLOGY Routine 09/26/2024 12:0 0 AM BUSINESS LAW PROFESSOR Neoplasm of unspecified behavior of bone, soft tissue, and skin Melanocytic nevi of trunk Other disturbances of skin sensation from Last 3 Months Results * DERMATOPATHOLOGY (09/26/2024 12:00 AM BUSINESS LAW PROFESSOR) Case Report Dermatopathology Report Case: [id number] Authorizing Provider: Jesús Paredes MD Collected: 09/26/2024 12:00 AM Ordering Location: [facility] - Received: 09/27/2024 12:55 PM DermPath Lab Pathologist: Jeni Horvath MD Specimens: A) - Skin, right mid back B) - Skin, right lower back 12:43 PM BUSINESS LAW PROFESSOR DERMATOPATHOLOGY LABORATORY Final Diagnosis Specimen A. 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 SKIN, right lower back: ACROCHORDON (SOFT FIBROMA, SKIN TAG) (L91.8) 12:43 PM BUSINESS LAW PROFESSOR DERMATOPATHOLOGY LABORATORY Clinical History A: Neoplasm of Unspecified Behavior vs Nevus, R/O Atypia B: Benign Nevus 12:43 PM [facility] Gross Description Specimen A: Received [...] measuring 5x4x4 mm. Jar 0. 12:43 PM [facility] D[facility]ORY Microscopic Description Specimen A. SKIN, [...] larger lesion, these findings may not be loan servicing representative of the entire lesion. Clinicopathologic correlation is recommended. Specimen B. SKIN, right lower back: There is a gently folded epidermis surrounding a connective tissue core in which fat and collagen are intermingled. 12:43 PM [facility] DER[facility] LABORATORY Disclaimer An external and internal positive and negative controls are appropriate for the histochemical, immunohistochemical and immunofluorescence stain(s) in this case (if any), except where stated explicitly. The performance characteristics of the stain(s) cited in this report were developed and its performance characteristic determined by the Dermatopathology Laboratory at [facility], directed by Dr. Ximena Wick. These tests need not be, and therefore are not, approved by the [place] Food and Drug Administration. The tests are used for clinical purposes. Billing Codes Specimen Charges Stain Charges [id number] 1 1 12:43 PM [facility] DERMAT[facility] LABORATORY Embedded Images 12:43 PM [facility] D[facility] LABORATORY Pathology/Cytology TISSUE SPECIMEN FROM SKIN / Unknown 09/26/2024 09/27/2024 12:55 PM BUSINESS LAW PROFESSOR Miscellaneous samples (specimen) TISSUE SPECIMEN FROM SKIN / Unknown 09/26/2024 09/27/2024 12:55 PM BUSINESS LAW PROFESSOR Jesús Paredes MD LAB - PATHOLOGY/ CYTOLOGY ORDERABLES DERMATOPATHOLOGY LABORATORY [facility] - Department of Dermatology [facility] [address] [place] [address], [facility] [phone] from Last 3 Months Care Teams Drafter Detail Relationship Specialty Start Date End Date Petra Doll MD [address] [place] [address] PCP - General Family Medicine 11/18/15
--- OUTSIDE RECORDS SUMMARY | 2024-10-18 10:18 | XMS_ITS | Clinical Summary ---
Author Organization [facility] Address [address] [place] [address] Care Team Providers Care Helmet Binder Name Role Phone Petra Doll MD Primary [...] age to complete this topic Insurance [facility] Care Teams Helmet Binder Relationship Specialty Start Date End Date Petra Doll MD [address] [facility] [address] [place] [address] PCP - General Family Medicine 02/07/19
== END 2024-10-18 09:16 | disposition home or self-care (01) ==
LOC: ANHIMG 09:19
PROVIDERS: PCP Family Medicine; Visit Provider Internal Medicine Endocrinology, Diabetes & Metabolism
DX: E04.1 Nontoxic single thyroid nodule (principal)
CPT/HCPCS: 10005; 88172; 88173; 88305

== ENCOUNTER 2024-10-31 13:33 | Outpatient (CLI) | payer MEDICARE, SELFPAY ==
--- NOTE | ~2024-10-31 | NM_ITS ---
EXAMINATION: NM thyroid scan w uptake DATE: 11/01/2024 14:38 INDICATION: Thyrotoxicosis COMPARISON: None. TECHNIQUE: 350 microcuries I-123 was administered orally in capsule form. Scintigraphic images of th e thyroid gland were obtained at 24 hours. Thyroid uptake was calculated by the technologist. FINDINGS: The thyroid uptake is 16.5% (normal 10-30%), with the right lobe measuring 7.8% uptake and the left 9 .0%. There is no focal area of decreased or increased activity to suggest hypofunctioning or hyperfun ctioning nodule. IMPRESSION: 1. Normal thyroid scintigraphy and 24-hour iodine uptake. Reviewed, dictated and finalized at location A.
--- OUTSIDE RECORDS SUMMARY | 2024-10-31 13:55 | XMS_ITS | Encounter Summary ---
Author Organization [facility] Address [address] [place] [address] Care Team Providers Care Trial Justice Name Role Phone Petra Doll MD Primary Care Provider + Encounter Details Date Type Department Care Team (Late st Contact Info) Description 09/26/2024 Lab Requisition [facility] - DermPath Lab [address] [place] [address] Jesús Pardees MD [address] [place] [address] Neoplasm of unspecified behavior of [...] Comments DERMATOPATHOLOGY Routine 09/26/2024 12:0 0 AM TAX COMPLIANCE REPRESENTATIVE Neoplasm of unspecified behavior of bone, soft tissue, and skin Melanocytic nevi of trunk Other disturbances of skin sensation documented in this encounter Results * DERMATOPATHOLOGY (09/26/2024 12:00 AM TAX COMPLIANCE REPRESENTATIVE) Case Report Dermatopathology Report Case: [id number] Authorizing Provider: Jesús Paredes MD Collected: 09/26/2024 12:00 AM Ordering Location: [facility] - Received: 09/27/2024 12:55 PM DermPath Lab Pathologist: Jeni Horvath MD Specimens: A) - Skin, right mid back B) - Skin, right lower back 12:43 PM TAX COMPLIANCE REPRESENTATIVE DERMATOPATHOLOGY LABORATORY Final Diagnosis Specimen A. 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 SKIN, right lower back: ACROCHORDON (SOFT FIBROMA, SKIN TAG) (L91.8) 12:43 PM TAX COMPLIANCE REPRESENTATIVE DERMATOPATHOLOGY LABORATORY Clinical History A: Neoplasm of Unspecified Behavior vs Nevus, R/O Atypia B: Benign Nevus 12:43 PM TAX COMPLIANCE REPRESENTATIVE DERMATOPATHOLOGY LABORATORY Gross Description Specimen A: Received [...] measuring 5x4x4 mm. Jar 0. 12:43 PM TAX COMPLIANCE REPRESENTATIVE DERMATOPATHOLOGY LABORATORY Microscopic Description Specimen A. SKIN, [...] larger lesion, these findings may not be product support sales representative of the entire lesion. Clinicopathologic correlation is recommended. Specimen B. SKIN, right lower back: There is a gently folded epidermis surrounding a connective tissue core in which fat and collagen are intermingled. 12:43 PM TAX COMPLIANCE REPRESENTATIVE DERMATOPATHOLOGY LABORATORY Disclaimer An external and internal positive and negative controls are appropriate for the histochemical, immunohistochemical and immunofluorescence stain(s) in this case (if any), except where stated explicitly. The performance characteristics of the stain(s) cited in this report were developed and its performance characteristic determined by the Dermatopathology Laboratory at [facility], directed by Dr. Ximena Wick. These tests need not be, and therefore are not, approved by the [place] Food and Drug Administration. The tests are used for clinical purposes. Billing Codes Specimen Charges Stain Charges 38331 27964 1 1 12:43 PM TAX COMPLIANCE REPRESENTATIVE DERMATOPATHOLOGY LABORATORY Embedded Images 12:43 PM TAX COMPLIANCE REPRESENTATIVE DERMATOPATHOLOGY LABORATORY Pathology/Cytology TISSUE SPECIMEN FROM SKIN / Unknown 09/26/2024 09/27/2024 12:55 PM TAX COMPLIANCE REPRESENTATIVE Miscellaneous samples (specimen) TISSUE SPECIMEN FROM SKIN / Unknown 09/26/2024 09/27/2024 12:55 PM TAX COMPLIANCE REPRESENTATIVE Jesús Paredes MD LAB - PATHOLOGY/ CYTOLOGY ORDERABLES DERMATOPATHOLOGY LABORATORY [facility] - Department of Dermatology [facility] Medicine [address] [place] [address], [address] [phone] documented in this encounter Visit Diagnoses Diagnosis Neoplasm of unspecified behavior of bone, soft tissue, and skin Melanocytic nevi of trunk Benign neoplasm of skin of trunk, except scrotum Other disturbances of skin sensation documented in this encounter Care Teams Trial Justice Relationship Specialty Start Date End Date Petra Doll MD [address] [place] [address] PCP - General Family Medicine 11/18/15 documented as of this encounter
--- OUTSIDE RECORDS SUMMARY | 2024-10-31 13:55 | XMS_ITS | Clinical Summary ---
Author Organization [facility] Address [address] [place] [address] Care Team Providers Care Shell Press Operator Name Role Phone Petra Doll MD [...] age to complete this topic Insurance [facility] Care Teams Shell Press Operator Relationship Specialty Start Date End Date Petra Doll MD [address] [facility] [address] [place] [address] PCP - General Family Medicine 02/07/19
--- OUTSIDE RECORDS SUMMARY | 2024-10-31 13:55 | XMS_ITS | Referral Summary ---
Author Organization [facility] Address [address] [place] [address] Care Team Providers Care Bus Mechanic Name Role Phone Petra Doll MD [...] Treatment Not on file [place] [address] [facility] [employer] [place] [address] [facility] [employer] Care Teams Bus Mechanic Relationship Specialty Start Date End Date Petra Doll MD [address] [facility] [address] [place] [address] PCP - General Family Medicine 02/07/19
--- OUTSIDE RECORDS SUMMARY | 2024-10-31 13:55 | XMS_ITS | Clinical Summary ---
Author Organization [facility] Address [address] [place] [address] Care Team Providers Care Data Assistant Name Role Phone Petra Doll MD Primary Care Provider + Source Comments [facility],non-owned Affiliates and Associated Physician Practices is amultiple site organization consisting of ambulatory clinics and hospital sitesin [place], [place], [place] and [place]. This disclosure is being madepursuant to the Care Everywhere program and may not contain all information available regarding this patient. Last updated 18.[facility] Allergies Active Allergy Reactions Criticality Noted Date [...] Department Care Team Description 09/26/2024 Lab Requisition [facility] - DermPath Lab [address] [facility], [place] [address] Jesús Paredes MD Neoplasm of unspecified behavior [...] Comments DERMATOPATHOLOGY Routine 09/26/2024 12:0 0 AM EROSION CONTROL SPECIALIST Neoplasm of unspecified behavior of bone, soft tissue, and skin Melanocytic nevi of trunk Other disturbances of skin sensation from Last 3 Months Results * DERMATOPATHOLOGY (09/26/2024 12:00 AM EROSION CONTROL SPECIALIST) Case Report Dermatopathology Report Case: [id number] Authorizing Provider: Jesús Paredes MD Collected: 09/26/2024 12:00 AM Ordering Location: [facility] - Received: 09/27/2024 12:55 PM DermPath Lab Pathologist: Jeni Horvath MD Specimens: A) - Skin, right mid back B) - Skin, right lower back 12:43 PM EROSION CONTROL SPECIALIST DERMATOPATHOLOGY LABORATORY Final Diagnosis Specimen A. 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 SKIN, right lower back: ACROCHORDON (SOFT FIBROMA, SKIN TAG) (L91.8) 12:43 PM EROSION CONTROL SPECIALIST DERMATOPATHOLOGY LABORATORY Clinical History A: Neoplasm of [...] larger lesion, these findings may not be solar sales representative and assessor of the entire lesion. Clinicopathologic correlation is [...] characteristic determined by the Dermatopathology Laboratory at [facility], directed by Dr. Ximena Wick. These tests need not be, and therefore are not, approved by the [place] Food and Drug Administration. The tests are used for clinical purposes. Billing Codes Specimen Charges Stain Charges 98276 23402 1 1 12:43 PM [facility] DERMATOPATHOLOGY LABORATORY Embedded Images 12:43 PM [facility] DERMATOPATHOLOGY LABORATORY Pathology/Cytology TISSUE SPECIMEN FROM SKIN / Unknown 09/26/2024 09/27/2024 12:55 PM EROSION CONTROL SPECIALIST Miscellaneous samples (specimen) TISSUE SPECIMEN FROM SKIN / Unknown 09/26/2024 09/27/2024 12:55 PM EROSION CONTROL SPECIALIST Jesús Paredes MD LAB - PATHOLOGY/ CYTOLOGY ORDERABLES DERMATOPATHOLOGY LABORATORY [facility] - Department of Dermatology [facility] Medicine [address], [address] [place] [address], [place] [phone] from Last 3 Months Care Teams Data Assistant Relationship Specialty Start Date End Date Petra Doll MD [address] [place] [address] PCP - General Family Medicine 11/18/15
== END 2024-10-31 13:34 | disposition home or self-care (01) ==
PROVIDERS: PCP Family Medicine; Visit Provider Internal Medicine Endocrinology, Diabetes & Metabolism
DX: E05.90 Thyrotoxicosis, unspecified without thyrotoxic crisis or storm (principal)
CPT/HCPCS: 78014; A9516

== ENCOUNTER 2025-03-28 14:36 | Outpatient (CLI) | payer MEDICARE, SELFPAY ==
--- NOTE | ~2025-03-28 | MM_ITS ---
EXAMINATION: MM screening [facility] BI w aidan HISTORY: Screening TECHNIQUE: Craniocaudal and mediolateral oblique 3-D tomosynthesis images were obtained and synthetic 2-D images were generated. CAD analysis was submitted and interpreted. COMPARISON: Mammograms from 03/06/2024 and 01/24/2023 BREAST PARENCHYMAL COMPOSITION: There are scattered areas of fibroglandular density. FINDINGS: There is no evidence of suspicious mass, calcification, or architectural distortion to suggest malignancy. There has been no suspicious interval change. IMPRESSION: 1. No mammographic evidence of malignancy. Recommend routine screening mammography in one year. BI-RADS Category 2: Benign finding(s) Reviewed, dictated and finalized at location Q. IMPRESSION: 1. No mammographic evidence of malignancy. Recommend routine screening mammogra phy in one year. BI-RADS Category 2: Benign finding(s)
--- OUTSIDE RECORDS SUMMARY | 2025-03-28 14:39 | XMS_ITS | Encounter Summary ---
Author Organization [facility] Address [address] [place] [address] Care Team Providers Care Healthcare Administrator Name Role Phone Petra Doll MD Primary Care Provider + Encounter Details Date Type Department Care Team (Late st Contact Info) Description 09/26/2024 Lab Requisition [facility] - DermPath Lab [address] [place] [address] Jesús Paredes MD [address] [place] [address] Neoplasm of unspecified behavior of bone, soft tissue, and skin; Melanocytic nevi of trunk; Other disturbances of skin sensation Social History Tobacco Use Types Packs/Day Years Used Date Smoking Tobacco: Every Day Cigarettes Smokeless Tobacco: Never Alcohol Use Standard Drinks/Week Comments No 0 (1 standard drink = 0.6 oz pur e alcohol) Comments No Sex and Gender Information Value Date Recorded Sex Assigned at Not on file Legal Sex Female 2:19 PM CDT Gender Identity Not on file Sexual Orientation Not on file 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 Not on file Not on file documented as of this encounter Plan of Treatment Not on file documented as of this encounter Procedures Procedure Name Priority Date/Time Associated Diagnosis Comments DERMATOPATHOLOGY Routine 09/26/2024 12:0 0 AM DIESEL ENGINE OPERATOR Neoplasm of unspecified behavior of bone, soft tissue, and skin Melanocytic nevi of trunk Other disturbances of skin sensation documented in this encounter Results * DERMATOPATHOLOGY (09/26/2024 12:00 AM [facility]) Case Report Dermatopathology Report Case: [id number] Authorizing Provider: Jesús Paredes MD Collected: 09/26/2024 12:00 AM Ordering Location: [facility] - Received: 09/27/2024 12:55 PM DermPath Lab Pathologist: Jeni Horvath MD Specimens: A) - Skin, right mid back B) - Skin, right lower back 12:43 PM [facility] DERMATOPATHOLOGY LABORATORY Final Diagnosis Specimen A. 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 SKIN, right lower back: ACROCHORDON (SOFT FIBROMA, SKIN TAG) (L91.8) 12:43 PM [facility] DERMATOPATHOLOGY LABORATORY at [address] DIESEL ENGINE OPERATOR Clinical History A: Neoplasm of Unspecified Behavior vs Nevus, R/O Atypia B: Benign Nevus 12:43 PM [facility] DERMATOPATHOLOGY LABORATORY Gross Description Specimen [...] measuring 5x4x4 mm. Jar 0. 12:43 PM [facility] DERMATOPATHOLOGY LABORATORY Microscopic Description Specimen [...] larger lesion, these findings may not be sales representatives of the entire lesion. Clinicopathologic correlation is recommended. Specimen B. SKIN, right lower back: There is a gently folded epidermis surrounding a connective tissue core in which fat and collagen are intermingled. 12:43 PM [facility] DERMATOPATHOLOGY LABORATORY Disclaimer An external and internal positive and negative controls are appropriate for the histochemical, immunohistochemical and immunofluorescence stain(s) in this case (if any), except where stated explicitly. The performance characteristics of the stain(s) cited in this report were developed and its performance characteristic determined by the Dermatopathology Laboratory at [facility], directed by Dr. Ximena Wick. These tests need not be, and therefore are not, approved by the [place] Food and Drug Administration. The tests are used for clinical purposes. Billing Codes Specimen Charges Stain Charges 63326 08287 1 1 12:43 PM DIESEL ENGINE OPERATOR DERMATOPATHOLOGY LABORATORY Embedded Images 12:43 PM DIESEL ENGINE OPERATOR DERMATOPATHOLOGY LABORATORY Pathology/Cytology TISSUE SPECIMEN FROM SKIN / Unknown 09/26/2024 09/27/2024 12:55 PM DIESEL ENGINE OPERATOR Miscellaneous samples (specimen) TISSUE SPECIMEN FROM SKIN / Unknown 09/26/2024 09/27/2024 12:55 PM DIESEL ENGINE OPERATOR Jesús Paredes MD LAB - PATHOLOGY/CYTOLOGY ORDERABLES Final Result DERMATOPATHOLOGY LABORATORY [facility] - Department of Dermatology [facility] Medicine [address] [place] [address], [address] [phone] documented in this encounter Visit Diagnoses Diagnosis Neoplasm of unspecified behavior of bone, soft tissue, and skin Melanocytic nevi of trunk Benign neoplasm of skin of trunk, except scrotum Other disturbances of skin sensation documented in this encounter Care Teams Healthcare Administrator Relationship Specialty Start Date End Date Petra Doll MD [address] [place] [address] PCP - General Family Medicine 11/18/15 documented as of this encounter
--- OUTSIDE RECORDS SUMMARY | 2025-03-28 14:39 | XMS_ITS | Clinical Summary ---
Author Organization [facility] Address [address] [place] [address] Care Team Providers Care Municipal Court Magistrate Name Role Phone Petra Doll MD Primary Care Provider + Source Comments [facility] [employer],non-owned Affiliates and Associated Physician Practices is amultiple site organization consisting of ambulatory clinics and hospital sitesin [place], [place], [place] and [place]. This disclosure is being madepursuant to the Care Everywhere program and may not contain all information available regarding this patient. Last updated 18.[facility] Allergies Active Allergy Reactions Criticality Noted Date Comments Hydrocodone-Acetaminophen Rash Low 11/18/2015 Medications * Be aware that medications may not be up to date on this document. Alwaysverify current medications with the patient. 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 Not on file Not on file Last Filed Vital Signs [...] 1:44 PM CDT Height 162.6 cm (5' 4) 11/18/2015 1:44 PM CDT Body Mass Index [...] - COLON CA SCREENING 1962 MAMMOGRAM 1962 HIV SCREENING 1977 HEPATITIS C SCREENING 02/10/1980 DTAP/TDAP/TD VACCINES (1 - Tdap) 1981 PNEUMOCOCCAL VACCINE 50+ (1 of 2 - PCV) 1981 ZOSTER VACCINE (1 of 2) 02/15/2012 COVID-19 VACCINE (1 - 2023-2 5 season) 2024 DEPRESSION SCREENING 07/31/2024 MEDICARE AWV CALENDAR YEAR 2024 INFLUENZA VACCINE (#1) 2025 Respiratory Syncytial Virus (RSV) Vaccine Pt: or [...] patient's age to complete [place] [address] [place] [address] [facility] [employer] MEDICARE ADV SELF PAY NO INSURANCE Member Subscriber Plan / Payer (Ef fective for All Dates) Name:Rachelle Pena Member ID:Not on file Relation to Subscriber:Not on file Name:RACHELLE PENA Subscriber ID:Not on file (Home) Address: [address] [place] [address] [place] [address] Payer ID:Not on file Group ID:Not on file Type:Self Pay Address: [place], [place] Care Teams Municipal [address] Magistrate Relationship Specialty Start Date End Date Petra Doll MD [address] [facility] [address] [place] [address] PCP - General Family Medicine 11/18/15
--- OUTSIDE RECORDS SUMMARY | 2025-03-28 14:39 | XMS_ITS | Clinical Summary ---
Author Organization [facility] Address [address] [place] [address] Care Team Providers Care Quality Control Assistant Name Role Phone Kiko Kuo MD Primary Care Provider Allergies Active Allergy [...] cholecalciferol (VITAMIN D-3) 2,000 unit tablet Take 1 tablet (2,000 Units total) by mouth Active OTEZLA 30 mg tablet [...] MOUTH FOUR TIMES A DAY 360 capsule 2 11/25/2024 Active Active Problems Patient Care Coordination No te Formatting of this note migh t be different from the original. Thyroid nodule No known active problems Surgical History Surgery [...] 6:59 AM CDT Height 162.6 cm (5' 4) 05/18/2023 6:59 AM CDT Body Mass Index [...] (1 of 2) 02/15/2012 Influenza Vaccine (#1) 2025 05/15/2019 Pneumococcal vaccine <65 Aged Out No longer eligible based on patient's age to complete this topic Insurance [place] [address] [facility] Care Teams Quality Control Assistant Relationship Specialty Start Date End Date Kiko Kuo MD [address] [place], [place] [phone] PCP - General Family Medicine 12/18/24
== END 2025-03-28 14:37 | disposition home or self-care (01) ==
LOC: ANHFOHIMG 14:38
PROVIDERS: PCP Family Medicine; Visit Provider Obstetrics & Gynecology
DX: Z12.31 Encounter for screening mammogram for malignant neoplasm of breast (principal)
CPT/HCPCS: 77063; 77067

== ENCOUNTER 2025-07-17 15:24 | Outpatient (CLI) | payer MEDICARE, SELFPAY ==
--- NOTE | ~2025-07-17 | CT_ITS ---
CT lung screening INDICATION: History of nicotine dependence, screening COMPARISON: 07/12/2024. TECHNIQUE: CT examination of the entire thorax without contrast was performed using low dose technique. Thin section axial, sagittal and coronal images were included to increase sensitivity for small lung nodules. FINDINGS: PULMONARY NODULES: There are no suspicious noncalcified pulmonary nodules. OTHER PULMONARY FINDINGS: No significant nonnodular pleural or parenchymal abnormality is noted. No emphysematous changes are present. No pathologically enlarged lymph nodes are present. Normal heart size. This limited nondedicated CT there is mild coronary artery calcifications. UPPER ABDOMEN AND PERIPHERAL SOFT TISSUE: Limited views of the upper abdomen and peripheral soft tissue demonstrated no abnormalities. Cholelithiasis is noted. No CT evidence of acute cholecystitis. 1.1 x 2.5 cm left adrenal adenoma is stable. OSSEOUS STRUCTURES: Bone window shows no aggressive blastic or lytic lesions. IMPRESSION: 1. Lung-RADS category 1: No nodules or definitely benign nodules. Recommendations: 1 or 2: Annual screening with low-dose CT in 12 months. 2. No emphysematous changes are present. All CT scans at this facility are performed using low dose modulation techniques as appropriate to perform exam including the following: automated exposure control; use of iterative reconstruction technique; adjustment of the mA and/or kV according to patient size (this includes techniques or standardized protocols for targeted exams where dose is matched to indication/reason for exam). Reviewed, dictated and finalized at location S. [facility]YER IMPRESSION: 1. Lung-RADS category 1: No nodules or definitely benign nodules. Recommendations: 1 or 2: Annual screening with low-dose CT in 12 months. 2. No emphysematous changes are present. All CT scans at this facility are performed using low dose modulation techniqu es as appropriate to perform exam including the following: automated exposure c ontrol; use of iterative reconstruction technique; adjustment of the mA and/or kV according to patient size (this includes techniques or standardized protocol s for targeted exams where dose is matched to indication/reason for exam).
--- OUTSIDE RECORDS SUMMARY | 2025-07-17 16:03 | XMS_ITS | Encounter Summary ---
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 Not on file Not on file documented as of this encounter Plan of Treatment Not on file documented as of this encounter Procedures Procedure Name Priority Date/Time Associated Diagnosis Comments DERMATOPATHOLOGY Routine 09/26/2024 12:0 0 AM [employer] L[employer] LINE BACK FEEDER Neoplasm of unspecified behavior of bone, soft tissue, and skin Melanocytic nevi of trunk Other disturbances of skin sensation documented in this encounter Results * DERMATOPATHOLOGY (09/26/2024 12:00 AM [facility]) Case Report Dermatopathology Report Case: [id number] Authorizing Provider: Jesús Paredes MD Collected: 09/26/2024 12:00 AM Ordering Location: [facility] - Received: 09/27/2024 12:55 PM DermPath Lab Pathologist: Jeni Horvath MD Specimens: A) - Skin, right mid back B) - Skin, right lower back 12:43 PM [facility] DERMATOPATHOLOGY LABORATORY Final Diagnosis Specimen A. 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 SKIN, right lower back: ACROCHORDON (SOFT FIBROMA, SKIN TAG) (L91.8) 12:43 PM [facility] DERMATOPATHOLOGY LABORATORY at [address] [employer] [employer] BACK FEEDER Clinical History A: Neoplasm of Unspecified Behavior vs Nevus, R/O Atypia B: Benign Nevus 12:43 PM [facility] DERMATOPATHOLOGY LABORATORY Gross Description Specimen A: [...] measuring 5x4x4 mm. Jar 0. 12:43 PM [facility] DERMATOPATHOLOGY LABORATORY Microscopic Description Specimen A. [...] larger lesion, these findings may not be personal financial representative of the entire lesion. Clinicopathologic correlation is recommended. Specimen B. SKIN, right lower back: There is a gently folded epidermis surrounding a connective tissue core in which fat and collagen are intermingled. 12:43 PM [facility] DERMATOPATHOLOGY LABORATORY Disclaimer An external and internal positive and negative controls are appropriate for the histochemical, immunohistochemical and immunofluorescence stain(s) in this case (if any), except where stated explicitly. The performance characteristics of the stain(s) cited in this report were developed and its performance characteristic determined by the Dermatopathology Laboratory at [facility], directed by Dr. Ximena Wick. These tests need not be, and therefore are not, approved by the [place] Food and Drug Administration. The tests are used for clinical purposes. Billing Codes Specimen Charges Stain Charges 62088 07195 1 1 12:43 PM [employer] L[employer] LINE BACK FEEDER DERMATOPATHOLOGY LABORATORY Embedded Images 12:43 PM [employer] BACK FEEDER DERMATOPATHOLOGY LABORATORY Pathology/Cytology TISSUE SPECIMEN FROM SKIN / Unknown 09/26/2024 09/27/2024 12:55 PM [employer] BACK FEEDER Miscellaneous samples (specimen) TISSUE SPECIMEN FROM SKIN / Unknown 09/26/2024 09/27/2024 12:55 PM [employer] L[employer] BACK FEEDER Jesús Paredes MD LAB - PATHOLOGY/CYTOLOGY ORDERABLES Final Result DERMATOPATHOLOGY LABORATORY [facility] - Department of Dermatology [facility] Medicine [address] [place] [address], [address] [phone] documented in this encounter Visit Diagnoses Diagnosis Neoplasm of unspecified behavior of bone, soft tissue, and skin Melanocytic nevi of trunk Benign neoplasm of skin of trunk, except scrotum Other disturbances of skin sensation documented in this encounter Care Teams Pocket Builder Relationship Specialty Start Date End Date Petra Doll MD [address] [place] [address] PCP - General Family Medicine 11/18/15 documented as of this encounter
--- OUTSIDE RECORDS SUMMARY | 2025-07-17 16:03 | XMS_ITS | Clinical Summary ---
Author Organization [facility] Address [address] [place] [address] Care Team Providers Care Special Assets Officer Name Role Phone Petra Doll MD Primary Care Provider + Source Comments [facility] [employer],non-owned Affiliates and Associated Physician Practices is amultiple site organization consisting of ambulatory clinics and hospital sitesin [place], [place], [place] and [place]. This disclosure is being madepursuant to the Care Everywhere program and may not contain all information available regarding this patient. 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 Not on file [...] 1981 ZOSTER VACCINE (1 of 2) 02/15/2012 DEPRESSION SCREENING 07/31/2024 MEDICARE AWV CALENDAR YEAR 2024 COVID-19 VACCINE ( - 2024-2 6 season) 2025 INFLUENZA VACCINE (#1) 2025 Respiratory Syncytial Virus [...] [place] [address] [facility] A[employer] MEDICARE ADV SELF PAY NO INSURANCE Member Subscriber Plan / Payer (Ef fective for All Dates) Name:Rachelle Pena Member ID:Not on file Relation to Subscriber:Not on file Name:RACHELLE PENA Subscriber ID:Not on file (Home) Address: [address] [place] [address] [place] [address] Payer ID:Not on file Group ID:Not on file Type:Self Pay Address: [place], [place] Care Teams Special Assets Officer Relationship Specialty Start Date End Date Petra Doll MD [address] [place] [address] PCP - General Family Medicine 11/18/15
--- OUTSIDE RECORDS SUMMARY | 2025-07-17 16:03 | XMS_ITS | Clinical Summary ---
Author Organization [facility] Address [address] [place] [address] Care Team Providers Care Vocational Counselor Name Role Phone Kiko Kuo MD Primary Care Provider Allergies Active Allergy Reactions Criticality Noted Date Comments Bupropion Rash Medium 03/17/2025 Hydrocodone-Acetaminophen Rash Medium 11/18/2015 Medications omeprazole (PriLOSEC) [...] A DAY 360 capsule 2 11/25/2024 Active escitalopram (LEXAPRO) 5 mg tablet Take 1 tablet (5 mg total) by mouth daily 03/03/2025 Active Active Problems Patient Care Coordination No te Formatting of this note migh t be different from the original. Thyroid nodule No known active problems Encounters Date Type Department Care Team Description 05/15/2025 Orders Only [facility] Medicine Orthopaedic Surgery [address] [place] [address] Zenon Watters MD Chronic foot pain, right (Primary Dx); Bilateral thumb pain; Pain in right wrist; Contusion of right wrist, initial encounter; Paresthesia and pain of both upper extremities; Right wrist tendinitis 04/30/2025 Results Follow-Up [facility] Orthopaedic Surgery [address] [place] [address] Zenon Watters MD XR Foot Right 3 or More Views 04/29/2025 1:45 PM CDT - 04/29/2025 11:59 PM CDT Hospital Encounter [facility] [address] [place] [address] Bilateral thumb pain Discharge Disposition: Discharge to home or self care 04/29/2025 1:40 PM CDT Office Visit [facility] Orthopaedic Surgery [address] [place] [address] [facility] 12th [place] [address] [place] [address] Zenon Watters MD Chronic foot pain, right (Primary Dx); Bilateral thumb pain from Last 3 Months Immunizations Immunization Administration Dates Next Due Flucelvax Influenza Quad 05/15/2019 Influenza, Quadrivalent, Spl it, Preservative Free, Intramuscular 04/23/2020 Influenza, Trivalent, Cell C ulture-based MDCK, Preservative Free, Antibiotic Free, Intramuscular 04/21/2023 Influenza, Trivalent, IM (MDV) 05/08/2024,2021 Pfizer SARS-CoV-2 Monovalent Vaccination (12+ Yrs) PURPLE 03/12/2021,02/18/2021 Tdap 09/10/2024 ZOSTER Recombinant 06/27/2023,02/16/2023 Surgical History Surgery Date Site/Laterality Comments [place] [...] Depression Screening 1962 Hepatitis C Screening 1960 Hepatitis B Screening 02/15/1980 Regular Well Visit/Exam 18-64 02/15/1980 Covid-19 Vaccine ( season) 2025 03/12/2021, 02/18/2021 Influenza Vaccine (#1) 2025 , 04/21/2023, 04/22/2022, Additional history exists DTaP/Tdap/Td Vaccine (2 - Td or Tdap) 09/10/2034 09/10/2024 Zoster Vaccine Completed 06/27/2023, 02/16/2023 Pneumococcal vaccine <65 Aged Out No longer eligible based on patient's age to complete this topic Procedures Procedure Name Priority Date/Time Associated Diagnosis Comments XR FINGER THUMB LEFT Schedule Routine, Read Routine (OP Routine) 04/29/2025 1:56 PM CDT Bilateral thumb pain XR FINGER THUMB RIGHT Schedule Routine, Read Routine (OP Routine) 04/29/2025 1:56 PM CDT Bilateral thumb pain XR FOOT RIGHT 3 OR MORE VIEWS Schedule Routine, Read Routine (OP Routine) 04/29/2025 1:56 PM CDT Chronic foot pain, right from Last 3 Months Results * XR Finger Thumb Left Minimum 2 Views (04/29/2025 1:56 PM CDT) Anatomical Region Laterality Modality Upper Extremities, Hand, Fingers Left Computed Radiography 04/29/2025 2:35 PM CDT Impressions 04/29/2025 2:35 PM CDT 1. Mild bilateral thumb osteoarthritis. 2. Distal right Achilles tendinopathy and plantar heel spur. Electronically signed by: Dexter Ratliff M.D. Narrative 04/29/2025 2:35 PM CDT EXAMINATION: XR FINGER THUMB RIGHT MINIMUM 2 VIEWS, XR FOOT RIGHT 3 OR MORE VIEWS, XR FINGER THUMB LEFT MINIMUM 2 VIEWS HISTORY: Bilateral thumb pain FINDINGS: Thumbs: 3 view examinations of both thumbs are performed. Comparison is with right wrist radiographs dated 04/26/2023. There is mild osteoarthritis of the bilateral thumb basal and interphalangeal joints. There is no fracture or dislocation in either thumb. Right foot: 3 view examination of the right foot is read without comparison. There is distal Achilles tendinopathy with a small insertional enthesophyte and small plantar heel spur. There is mild right 1st metatarsophalangeal osteoarthritis. The other joint spaces are normal. No fracture or erosion is present. Procedure Note Dexter Ratliff MD - 04/29/2025 EXAMINATION: XR FINGER THUMB RIGHT MINIMUM 2 VIEWS, XR FOOT RIGHT 3 OR MORE VIEWS, XR FINGER THUMB LEFT MINIMUM 2 VIEWS HISTORY: Bilateral thumb pain FINDINGS: Thumbs: 3 view examinations of both thumbs are performed. Comparison is with right wrist radiographs dated 04/26/2023. There is mild osteoarthritis of the bilateral thumb basal and interphalangeal joints. There is no fracture or dislocation in either thumb. Right foot: 3 view examination of the right foot is read without comparison. There is distal Achilles tendinopathy with a small insertional enthesophyte and small plantar heel spur. There is mild right 1st metatarsophalangeal osteoarthritis. The other joint spaces are normal. No fracture or erosion is present. IMPRESSION: 1. Mild bilateral thumb osteoarthritis. 2. Distal right Achilles tendinopathy and plantar heel spur. Electronically signed by: Dexter Ratliff M.D. Zenon Watters MD IMG XR PROCEDURES Final Result * XR Finger Thumb Right Minimum 2 Views (04/29/2025 1:56 PM CDT) Anatomical Region Laterality Modality Upper Extremities, Hand, Fingers Right Computed Radiography 04/29/2025 2:35 PM CDT Impressions 04/29/2025 2:35 PM CDT 1. Mild bilateral thumb osteoarthritis. 2. Distal right Achilles tendinopathy and plantar heel spur. Electronically signed by: Dexter Ratliff M.D. Narrative 04/29/2025 2:35 PM CDT EXAMINATION: XR FINGER THUMB RIGHT MINIMUM 2 VIEWS, XR FOOT RIGHT 3 OR MORE VIEWS, XR FINGER THUMB LEFT MINIMUM 2 VIEWS HISTORY: Bilateral thumb pain FINDINGS: Thumbs: 3 view examinations of both thumbs are performed. Comparison is with right wrist radiographs dated 04/26/2023. There is mild osteoarthritis of the bilateral thumb basal and interphalangeal joints. There is no fracture or dislocation in either thumb. Right foot: 3 view examination of the right foot is read without comparison. There is distal Achilles tendinopathy with a small insertional enthesophyte and small plantar heel spur. There is mild right 1st metatarsophalangeal osteoarthritis. The other joint spaces are normal. No fracture or erosion is present. Procedure Note Dexter Ratliff MD - 04/29/2025 EXAMINATION: XR FINGER THUMB RIGHT MINIMUM 2 VIEWS, XR FOOT RIGHT 3 OR MORE VIEWS, XR FINGER THUMB LEFT MINIMUM 2 VIEWS HISTORY: Bilateral thumb pain FINDINGS: Thumbs: 3 view examinations of both thumbs are performed. Comparison is with right wrist radiographs dated 04/26/2023. There is mild osteoarthritis of the bilateral thumb basal and interphalangeal joints. There is no fracture or dislocation in either thumb. Right foot: 3 view examination of the right foot is read without comparison. There is distal Achilles tendinopathy with a small insertional enthesophyte and small plantar heel spur. There is mild right 1st metatarsophalangeal osteoarthritis. The other joint spaces are normal. No fracture or erosion is present. IMPRESSION: 1. Mild bilateral thumb osteoarthritis. 2. Distal right Achilles tendinopathy and plantar heel spur. Electronically signed by: Dexter Ratliff M.D. Zenon Watters MD IMG XR PROCEDURES Final Result * XR Foot Right 3 or More Views (04/29/2025 1:56 PM CDT) Anatomical Region Laterality Modality Lower Extremities, Foot Right Computed Radiography 04/29/2025 2:35 PM CDT Impressions 04/29/2025 2:35 PM CDT 1. Mild bilateral thumb osteoarthritis. 2. Distal right Achilles tendinopathy and plantar heel spur. Electronically signed by: Dexter Ratliff M.D. Narrative 04/29/2025 2:35 PM CDT EXAMINATION: XR FINGER THUMB RIGHT MINIMUM 2 VIEWS, XR FOOT RIGHT 3 OR MORE VIEWS, XR FINGER THUMB LEFT MINIMUM 2 VIEWS HISTORY: Bilateral thumb pain FINDINGS: Thumbs: 3 view examinations of both thumbs are performed. Comparison is with right wrist radiographs dated 04/26/2023. There is mild osteoarthritis of the bilateral thumb basal and interphalangeal joints. There is no fracture or dislocation in either thumb. Right foot: 3 view examination of the right foot is read without comparison. There is distal Achilles tendinopathy with a small insertional enthesophyte and small plantar heel spur. There is mild right 1st metatarsophalangeal osteoarthritis. The other joint spaces are normal. No fracture or erosion is present. Procedure Note Dexter Ratliff MD - 04/29/2025 EXAMINATION: XR FINGER THUMB RIGHT MINIMUM 2 VIEWS, XR FOOT RIGHT 3 OR MORE VIEWS, XR FINGER THUMB LEFT MINIMUM 2 VIEWS HISTORY: Bilateral thumb pain FINDINGS: Thumbs: 3 view examinations of both thumbs are performed. Comparison is with right wrist radiographs dated 04/26/2023. There is mild osteoarthritis of the bilateral thumb basal and interphalangeal joints. There is no fracture or dislocation in either thumb. Right foot: 3 view examination of the right foot is read without comparison. There is distal Achilles tendinopathy with a small insertional enthesophyte and small plantar heel spur. There is mild right 1st metatarsophalangeal osteoarthritis. The other joint spaces are normal. No fracture or erosion is present. IMPRESSION: 1. Mild bilateral thumb osteoarthritis. 2. Distal right Achilles tendinopathy and plantar heel spur. Electronically signed by: Dexter Ratliff M.D. Zenon Watters MD IMG XR PROCEDURES Final Result from Last 3 [place] [address] [facility] [place] [address] [facility] [employer] Care Teams Vocational Counselor Relationship Specialty Start Date End Date Kiko Kuo MD [address] [facility] [address] [place] [address] PCP - General Family Medicine 12/18/24
== END 2025-07-17 15:25 | disposition home or self-care (01) ==
PROVIDERS: PCP Family Medicine; Visit Provider Physician Assistant Medical
DX: Z12.31 Encounter for screening mammogram for malignant neoplasm of breast (principal)
CPT/HCPCS: 71271